=== PATIENT | male | born 1940 | race Caucasian/White ===

== ENCOUNTER 2019-06-19 15:15 | Emergency (ER) | payer OTHER, MEDICARE, SELFPAY ==
[2019-06-19 15:16] VITALS: BP 184/74; PULSE 74; RESP 18; TEMP 36.5; O2SAT 97; BMI 30.7
[2019-06-19 15:20] VITALS: O2SAT 97
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
[2019-06-19] MEDS: Ketorolac 30 MG/ML Syringe IM (16:31)
[2019-06-19] MEDS: Acetaminophen 325 MG Tablet 650 MG PO (16:31)
[2019-06-19 17:07] VITALS: BP 185/66; PULSE 92; RESP 16; O2SAT 97
[2019-06-19] MEDS: Diphth,Pertuss(Acell),Tet Vac 0.5 ML Vial IM (18:04)
== END 2019-06-19 17:08 | disposition home or self-care (01) ==
LOC: ED 16:33
PROVIDERS: Emergency Provider Emergency Medicine; PCP Family Medicine
DX: S61.412A Laceration without foreign body of left hand, initial encounter (principal); S20.211A Contusion of right front wall of thorax, initial encounter; V89.2XXA Person injured in unspecified motor-vehicle accident, traffic, initial encounter; Y93.9 Activity, unspecified; Y92.9 Unspecified place or not applicable
CPT/HCPCS: 71250; 90715; 96372; 99284

== ENCOUNTER → 2024-07-13 | Outpatient (CLI) | payer MEDICARE, OTHER, SELFPAY ==
[2024-07-13 12:24] LABS: Absolute Lymphocyte Count 1.26 X10^3/uL (0.83-4.51); Absolute Neutrophil Count 5.4 X10^3/uL (2.0-7.7); Basophil# 0.06 X10^3/uL; Basophil% 0.8 % (0-1); Eosinophil# 0.33 X10^3/uL; Eosinophils% 4.3 % (0-5); Hematocrit 39.6 % (40-54); Hemoglobin 12.6 g/dL (13.0-16.5); Lymphocyte # 1.26 X10^3/ul (0.83-4.51); Lymphocyte % 16.4 % (19-41); Mean Corp Hgb Conc 31.8 g/dL (32-36); Mean Corpuscular Hgb 28.1 pg (27.0-32.0); Mean Corpuscular Volume 88.4 fL (80-94); Mean Platelet Vol. 9.9 fl (6.2-12.0); Monocyte# 0.65 X10^3/uL; Monocyte% 8.5 % (0-10); NRBC Flagged by Analyzer 0 % (0-5); Neutrophil # 5.35 X10^3/uL (2.7-7.7); Neutrophil % 69.6 % (47-70); Platelet Count 320 K/mm3 (150-450); RBC Distribution Width CV 14.8 % (11.6-14.6); RBC Distribution Width SD 47.8 fl (35.1-43.9); Red Blood Count 4.48 M/mm3 (4.6-6.2); White Blood Count 7.7 K/mm3 (4.4-11.0)
[2024-07-13 14:53] LABS: ALB/GLOB Ratio 1.3 RATIO (0.9-2.4); AST(SGOT) 18 U/L (<=37); Alanine Aminotransfer ALT/SGPT 16 U/L (<=46); Albumin, Serum 3.9 g/dL (3.4-4.8); Alkaline Phosphatase 112 U/L (40-129); Anion Gap 10 (5-15); BUN 20 mg/dL (4-19); BUN/Creat Ratio 11.7 RATIO (10-20); Calcium,Total 9.7 mg/dL (7.6-11.0); Carbon Dioxide 23.1 mmol/L (21.0-32.0); Chloride 105 mmol/L (98-108); Cholesterol 191 mg/dL (<=200); Creatinine, Serum 1.74 mg/dL (0.70-1.20); EST Glomerular Filtration Rate 38 (>60); Glucose 106 mg/dL (70-99); High Density Lipoprotein 50 mg/dL; Low Density Lipoprotein Calc. 121 mg/dL; Potassium 4.9 mmol/L (3.3-5.1); Protein, Total 6.9 g/dL (5.9-8.4); Sodium Level 137 mmol/L (133-145); Total Bilirubin 0.43 mg/dL (0.00-1.30); Triglycerides 100 mg/dL; Very Low Density Lipoprotein 20 mg/dL (5-40); cholesterol:hdl ratio screen 3.84
[2024-07-13 15:01] LABS: Vitamin D,25 Hydroxy 53.5 ng/mL (30-100)
== END | disposition home or self-care (01) ==
LOC: BIMLAB 08:12
PROVIDERS: PCP Internal Medicine; Referring Provider Internal Medicine; Visit Provider Internal Medicine
DX: E55.9 Vitamin D deficiency, unspecified (principal); I10 Essential (primary) hypertension
CPT/HCPCS: 36415; 80053; 80061; 82306; 84443; 85025

== ENCOUNTER → 2024-08-11 | Outpatient (CLI) | payer MEDICARE, OTHER, SELFPAY ==
[2024-08-11 13:27] LABS: Anion Gap 12 (5-15); BUN 20 mg/dL (4-19); Calcium,Total 9.4 mg/dL (7.6-11.0); Carbon Dioxide 20.5 mmol/L (21.0-32.0); Chloride 106 mmol/L (98-108); EST Glomerular Filtration Rate 36 (>60); Glucose 120 mg/dL (70-99); Potassium 5.1 mmol/L (3.3-5.1); Sodium Level 139 mmol/L (133-145)
[2024-08-11 13:32] LABS: Hematocrit 39.3 % (40-54); Hemoglobin 12.9 g/dL (13.0-16.5); Mean Corp Hgb Conc 32.8 g/dL (32-36); Mean Corpuscular Hgb 28.7 pg (27.0-32.0); Mean Corpuscular Volume 87.3 fL (80-94); Mean Platelet Vol. 10.2 fl (6.2-12.0); Platelet Count 266 K/mm3 (150-450); RBC Distribution Width CV 14.3 % (11.6-14.6); White Blood Count 8.2 K/mm3 (4.4-11.0)
== END | disposition home or self-care (01) ==
LOC: BIMLAB 10:31
PROVIDERS: PCP Internal Medicine; Referring Provider Internal Medicine; Visit Provider Internal Medicine
DX: I12.9 Hypertensive chronic kidney disease with stage 1 through stage 4 chronic kidney disease, or unspecified chronic kidney disease (principal); N18.9 Chronic kidney disease, unspecified
CPT/HCPCS: 36415; 80048; 84443; 85027

== ENCOUNTER → 2024-11-10 | Outpatient (CLI) | payer MEDICARE, OTHER, SELFPAY ==
[2024-11-10 13:12] LABS: Anion Gap 13 (5-15); BUN 21 mg/dL (4-19); BUN/Creat Ratio 11.5 RATIO (10-20); Calcium,Total 9.6 mg/dL (7.6-11.0); Carbon Dioxide 21.3 mmol/L (21.0-32.0); Chloride 103 mmol/L (98-108); Glucose 103 mg/dL (70-99); Potassium 4.9 mmol/L (3.3-5.1)
== END | disposition home or self-care (01) ==
LOC: LAB 11:13
PROVIDERS: PCP Internal Medicine; Referring Provider Internal Medicine; Visit Provider Internal Medicine
DX: I10 Essential (primary) hypertension (principal)
CPT/HCPCS: 36415; 80048

== ENCOUNTER → 2024-11-14 | Outpatient (CLI) | payer MEDICARE, OTHER, SELFPAY ==
--- OUTSIDE RECORDS SUMMARY | 2024-11-14 13:10 | XMS RPT_ITS | CCD ---
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 appearance normal, both eyes and all related structures Neck Neck: normal visual inspection, no lymphadenopathy and no meningeal signs Chest Chest palpation inspection: normal inspection of the chest Resp Effort Inspection: normal respiratory effort and able to speak in complete sentences Auscultation: Bilateral: Clear to Auscultation Cardio Palpation: normal PMI Rate: regular rate Rhythm: regular rhythm Heart Sounds: S1 normal and S2 normal Pulses: radial pulses present GI Inspection: normal to inspection Skin General: no rashes or lesions noted Other: Erythematous papular rash with lichenification's throughout back, BUE, RLE with excoriations appreciated to several sites. Additionally, right hand moderate swelling proximal right index finger at site of insect bite with trace tender to palpation same. Neuro General: patient alert and patient a (more content not included)... Normal [facility] Anion gap in Serum or Plasma Ordered By: Nhoemy Pennington on 08-11-2024 Anion gap [Moles/Vol] 12 mmol/L 08-18 [facility] BUN/creatinine ratioOrdered By: Nohemy Pennington on 08-11-2024 Urea nitrogen/Creatinine [Mass ratio] 11.0 mg/mg 01-23 [facility] Basic Metabolic Profile (BMP )on 08-11-2024 BUN/CRE 11.0 RATIO Normal 01-23 [facility] Comment on above: Performed By: #### L 500.2500, L100.0500, L501.9520 ####[facility] [address] [place], [address] Calcium [Mass/Vol] 9.4 mg/dL Normal 7.6-11.0 [facility] Comment on above: Performed By: #### L 500.2500, L100.0500, L501.9520 ####[facility] [address] [place], [address] Chloride [Moles/Vol] 106 mmol/L Normal 98-108 [facility] Comment on above: Performed By: #### L 500.2500, L100.0500, L501.9520 ####[facility] [address] [place], [address] CO2 [Moles/Vol] 20.5 mmol/L Low 21.0-32.0 [facility] Comment on above: Performed By: #### L 500.2500, L100.0500, L501.9520 ####[facility] [address] [place], [address] Creatinine [Mass/Vol] 1.80 mg/dL High 0.70-1.20 [facility] Comment on above: Performed By: #### L 500.2500, L100.0500, L501.9520 ####[facility] [address] [place], [address] GAP 12 Normal 5-15 [facility] Comment on above: Performed By: #### L 500.2500, L100.0500, L501.9520 ####[facility] [address] [place], [address] GFR/1.73 sq M.predicted among non-blacks MDRD (S/P/Bld) [Vol rate/Area] 36 mL/min/{1.73_m2} Low >60 [facility] Comment on above: Result Comment: mL/m in/1.73m2 CKD-EPI Creatinine Equation (2020) Performed By: #### L 500.2500, L100.0500, L501.9520 ####[facility] [address] [place], [address] Glucose [Mass/Vol] 120 mg/dL High 70-99 [facility] Comment on above: Performed By: #### L 500.2500, L100.0500, L501.9520 ####[facility] [address] [place], [address] Potassium [Moles/Vol] 5.1 mmol/L Normal 3.3-5.1 [facility] Comment on above: Performed By: #### L 500.2500, L100.0500, L501.9520 ####[facility] [address] [place], [address] Sodium [Moles/Vol] 139 mmol/L Normal 133-145 [facility] Comment on above: Performed By: #### L 500.2500, L100.0500, L501.9520 ####[facility] [address] [place], [address] Urea nitrogen [Mass/Vol] 20 mg/dL High 4-19 [facility] Comment on above: Performed By: #### L 500.2500, L100.0500, L501.9520 ####[facility] [address] [place], [address] CBC-Complete Blood Cnt No Di ffon 08-11-2024 Erythrocyte distribution width (RBC) [Ratio] 14.3 % Normal 11.6-14.6 [facility] Comment on above: Performed By: #### L 500.2500, L100.0500, L501.9520 ####[facility] [address] [place], [address] Hematocrit (Bld) [Volume fraction] 39.3 % Low 40-54 [facility] Comment on above: Performed By: #### L 500.2500, L100.0500, L501.9520 ####[facility] [address] [place], [address] Hemoglobin (Bld) [Mass/Vol] 12.9 g/dL Low 13.0-16.5 [facility] Comment on above: Performed By: #### L 500.2500, L100.0500, L501.9520 ####[facility] [address] [place], [address] MCH (RBC) [Entitic mass] 28.7 pg Normal 27.0-32.0 [facility] Comment on above: Performed By: #### L 500.2500, L100.0500, L501.9520 ####[facility] [address] [place], [address] MCHC (RBC) [Mass/Vol] 32.8 g/dL Normal 32-36 [facility] Comment on above: Performed By: #### L 500.2500, L100.0500, L501.9520 ####[facility] [address] [place], [address] MCV (RBC) [Entitic vol] 87.3 fL Normal 80-94 [facility] Comment on above: Performed By: #### L 500.2500, L100.0500, L501.9520 ####[facility] [address] [place], [address] Platelet mean volume (Bld) [Entitic vol] 10.2 fL Normal 6.2-12.0 [facility] Comment on above: Performed By: #### L 500.2500, L100.0500, L501.9520 ####[facility] [address] [place], [address] Platelets (Bld) [#/Vol] 266 10*3/uL Normal 150-450 [facility] Comment on above: Performed By: #### L 500.2500, L100.0500, L501.9520 ####[facility] [address] [place], [address] RBC (Bld) [#/Vol] 4.50 10*6/uL Low 4.6-6.2 [facility] Comment on above: Performed By: #### L 500.2500, L100.0500, L501.9520 ####[facility] [address] [place], [address] RDW SD 46.0 fl High 35.1-43.9 [facility] Comment on above: Performed By: #### L 500.2500, L100.0500, L501.9520 ####[facility] [address] [place], [address] WBC (Bld) [#/Vol] 8.2 10*3/uL Normal 4.4-11.0 [facility] Comment on above: Performed By: #### L 500.2500, L100.0500, L501.9520 ####[facility] [address] [place], [address] Carbon dioxide, total [Moles /volume] in Central venous bloodOrdered By: Nohemy Pennington on 08-11-2024 CO2 [Moles/Vol] 20.5 mmol/L Low 21.0-32.0 [facility] Chloride assayOrdered By: Simone Pennington on 08-11-2024 Chloride [Moles/Vol] 106 mmol/L 98-108 [facility] Erythrocyte distribution wid th ratioOrdered By: Nohemy Pennington on 08-11-2024 Erythrocyte distribution width (RBC) [Ratio] 14.3 % 11.6-14.6 [facility] Erythrocyte distribution wid th standard deviationOrdered By: Nohemy Pennington on 08-11-2024 Erythrocyte distribution width (RBC) [Ratio] 46.0 fl High 35.1-43.9 [facility] Glomerular filtration rate ( GFR) estimation/1.73 sq m using serum, plasma, or whole bOrdered By: Nohemy Pennington on 08-11-2024 GFR/1.73 sq M.predicted among non-blacks MDRD (S/P/Bld) [Vol rate/Area] 36 mL/min/{1.73_m2} Low >60 [facility] Comment on above: mL/min/1.73m2 CKD-EP I Creatinine Equation (2020) Hematocrit Auto (Bld) [Volum e fraction]Ordered By: Nohemy Pennington on 08-11-2024 Hematocrit (Bld) [Volume fraction] 39.3 % Low 40-54 [facility] Hemoglobin measurementOrdere d By: Nohemy Pennington on 08-11-2024 Hemoglobin (Bld) [Mass/Vol] 12.9 g/dL Low 13.0-16.5 [facility] MCV (mean corpuscular volume ) determinationOrdered By: Nohemy Pennington on 08-11-2024 MCV (RBC) [Entitic vol] 87.3 fL 80-94 [facility] Mean corpuscular hemoglobin (MCH) determinationOrdered By: Nohemy Pennington on 08-11-2024 MCH (RBC) [Entitic mass] 28.7 pg 27.0-32.0 [facility] Mean corpuscular hemoglobin concentration (MCHC) determinationOrdered By: Nohemy Pennington on 08-11-2024 MCHC (RBC) [Mass/Vol] 32.8 g/dL 32-36 [facility] Mean platelet volume determi nationOrdered By: Nohemy Pennington on 08-11-2024 Platelet mean volume (Bld) [Entitic vol] 10.2 fL 6.2-12.0 [facility] Platelet countOrdered By: Simone Pennington on 08-11-2024 Platelets (Bld) [#/Vol] 266 10*3/uL 150-450 [facility] Potassium measurement (mass/ volume)Ordered By: Nohemy Pennington on 08-11-2024 Potassium (Unsp spec) [Mass/Vol] 5.1 mmol/L 3.3-5.1 [facility] RBC Auto (Bld) [#/Vol]Ordere d By: Nohemy Pennington on 08-11-2024 RBC (Bld) [#/Vol] 4.50 10*6/uL Low 4.6-6.2 [facility] Serum creatinine measurement (mass/volume)Ordered By: Nohemy Pennington on 08-11-2024 Creatinine [Mass/Vol] 1.80 mg/dL High 0.70-1.20 [facility] Serum glucose measurement (m ass/volume)Ordered By: Nohemy Pennington on 08-11-2024 Glucose [Mass/Vol] 120 mg/dL High 70-99 [facility] Serum or plasma calcium anant urement (mass/volume)Ordered By: Nohemy Pennington on 08-11-2024 Calcium [Mass/Vol] 9.4 mg/dL 7.6-11.0 [facility] Serum or plasma urea nitroge n measurement (mass/volume)Ordered By: Nohemy Pennington on 08-11-2024 Urea nitrogen [Mass/Vol] 20 mg/dL High 4-19 [facility] Sodium levelOrdered By: Stephanie Pennington on 08-11-2024 Sodium [Moles/Vol] 139 mmol/L 133-145 [facility] TSH DL <= 0.005 mIU/L QnOrde red By: Nohemy Pennington on 08-11-2024 TSH Qn 5.360 uIU/mL High 0.300-4.200 [facility] Thyroid Stim Hormone (TSH)on 08-11-2024 TSH 5.360 uIU/mL High 0.300-4.200 [facility] Comment on above: Performed By: #### L 500.2500, L100.0500, L501.9520 ####[facility] [address] [place], [address] White blood cell (WBC) count Ordered By: Nohemy Pennington on 08-11-2024 WBC (Bld) [#/Vol] 8.2 10*3/uL 4.4-11.0 [facility] Internal Medicine Office Vis iton 08-10-2024 Internal Medicine Office Visit [facility] [address] [place] [address] [address] [place], [place] [id number] OFFICE VISIT Date of Service: 08/11/24 MR#: [id number] Acct: [id number] Name: AGATHA HEATH Rep #: [id number] : 1940 Provider: Dr. Nohemy garcia MD Age/Sex: 84/M Location: [facility] Status: Signed Intake Vital Signs 07/12/24 14:33 08/11/24 10:02 08/11/24 10:02 08/11/24 11:22 Height 5 ft 7 in 5 ft 7 in Weight: 179 lb BMI 28.0 BP 150/82 H 150/82 H 178/80 H Blood Pressure Location Lt brachial Lt brachial Position Sitting Sitting Respiration 16 Pulse 58 L Pulse Source Monitor Temp 97.1 F L Temp Source Temporal Pulse Oximetry (%) 99 Oxygen Delivery Method room air Intake Visit Reasons: 4 WK FU Chief Complaint: bp Blanket Folder Required: No Is patient in pain?: No Allergies ampicillin Allergy (Verified 08/11/24 09:55) Rash bacitracin (From Polysporin) Allergy (Verified 08/11/24 09:55) Rash polymyxin B sulfate (From Polysporin) Allergy (Verified 08/11/24 09:55) Rash clindamycin Adverse Reaction (Verified 08/11/24 09:55) Diarrhea hydrochlorothiazide Adverse Reaction (Verified 08/11/24 09:55) Vomiting Have you fallen in the past year?: No Nurse's Note: Pt has been doing okay since starting norvasc. Pt states he has no side effects and does not check bp's at home or keeps logs. Pt states he got a new bp machine but has not used it yet. When reconciling meds. Pt states he takes losartan qd rather bid as written. Is taking 100mg. [facility] Medical History Skin cancer Surgical History H/O removal of cyst S/P skin cancer resection Family History Father COPD (chronic obstructive pulmonary disease) Social History household members: none current occupational status: retired current occupation: [employer] Smoking Status: Former smoker alcohol intake: never substance use type: does not use do you feel safe at home: Yes HPI HPI Chief Complaint: bp Details: AGATHA HEATH, is a 84 M who presents to the office today for a follow up. He is due for some repeat blood work. He isn't due for any further screening. He reports he is up to date on his immunizations. He doesn't smoke and doesn't need any refills. He reports he is eating healthy. He likes to ride his bike and walks every morning. He has not been checking his blood pressure at home since he was last seen. At his last visit, amlodipine was added to his medications. He is taking his medication as prescribed without problems. He doesn't eat a lot of salty foods and drinks only one cup of coffee per day. The patient never scheduled his echo. He states he would prefer not to do it at this time. He denies any symptoms of shortness of breath, dizziness/lightheadedn ess. The patient reports he continues to grieve his , but states he thinks he is doing better. He reports feeling lonely and doesn't feel people come by as much. He doesn't feel that he needs to see a counselor or take anything for his mental health. He does feel that his family is supportive. He has no other questions or concerns at this time. ROS Const Constitutional: No body ache, chills, excessive sweating, fatigue, fever(s), frequent falls, headache(s), snoring, weakness, weight change, sleep problems or change in appetite Eyes Eyes: No blurry vision, change in vision, eye pain or Light sensitivity ENT ENT: No abnormal hearing, ear or mastoid pain, tinnitus, nasal congestion, headache(s), neck pain or sore throat Resp Respiratory: No cough, shortness of breath, snoring or wheezing Cardio Cardiology: No chest pain at rest, chest pain with exertion, excessive sweating, shortness of breath, dyspnea on exertion, lightheadedness, orthopnea, palpitations or other (no leg swelling) Gastro GI: No abdominal pain, change in bowel habits, constipation, cramping, diarrhea, nausea/dyspepsia or vomiting Genitourinary Male: No difficulty urinating, burning urination, painful urination, urinary incontinence or urinary frequency Musc Musculoskeletal: No abnormal gait, joint pain, back pain, limited range of motion, neck pain, numbness or tingling Skin Skin: No dry skin, redness, lesions, itchy eyes, rash or wounds Neuro Neurology: No abnormal gait, abnormal hearing, dizziness, weakness, frequent falls, headache(s), memory loss, numbness, tingling or fainting Psych Psychiatric: No anxiety, No change in appetite, No depression, No memory loss and No Thoughts of harming yourself/Others Endo Endocrine: No cold intolerance, excessive sweating, fatigue, flushing, heat intolerance, increased (more content not included)... Normal [facility] Absolute lymphocyte countOrd ered By: Nohemy Pennington on 07-13-2024 Lymphocytes Auto (Unsp spec) [#/Vol] 1.26 10*3/uL 0.83-4.51 [facility] Absolute neutrophil countOrd ered By: Nohemy Pennington on 07-13-2024 Neutrophils (Bld) [#/Vol] 5.4 10*3/uL 2.0-7.7 [facility] Anion gap in Serum or Plasma Ordered By: Nohemy Pennington on 07-13-2024 Anion gap [Moles/Vol] 10 mmol/L 5-15 [facility] Automated lymphocyte count a s percentage of total leukocytesOrdered By: Nohemy Pennington on 07-13-2024 Lymphocytes/100 WBC Auto (Unsp spec) 16.4 % Low 19-41 [facility] BUN/creatinine ratioOrdered By: Nohemy Pennington on 07-13-2024 Urea nitrogen/Creatinine [Mass ratio] 11.7 mg/mg 10-20 [facility] Basophil percentageOrdered B y: Nohemy Pennington on 07-13-2024 Basophils/100 WBC (Bld) 0.8 % 0-1 [facility] Bilirubin, totalOrdered By: Nohemy Pennington on 07-13-2024 Bilirubin [Mass/Vol] 0.43 mg/dL 0.00-1.30 [facility] CBC W/Diff, Automatedon 04-0 9-2025 Absolute Lymph 1.26 X10 3/uL Normal 0.83-4.51 [facility] Comment on above: Performed By: #### L 500.4100, L100.0100, L500.4050, L506.1001, L501.9520 #### [facility] [address] [place], [address] Absolute Neut 5.4 X10 3/uL Normal 2.0-7.7 [facility] Comment on above: Performed By: #### L 500.4100, L100.0100, L500.4050, L506.1001, L501.9520 #### [facility] [address] [place], [address] Basophils/100 WBC (Bld) 0.8 % Normal 0-1 [facility] Comment on above: Performed By: #### L 500.4100, L100.0100, L500.4050, L506.1001, L501.9520 #### [facility] [address] [place], [address] Eosinophils/100 WBC (Bld) 4.3 % Normal 0-5 [facility] Comment on above: Performed By: #### L 500.4100, L100.0100, L500.4050, L506.1001, L501.9520 #### [facility] [address] [place], [address] Erythrocyte distribution width (RBC) [Ratio] 14.8 % High 11.6-14.6 [facility] Comment on above: Performed By: #### L 500.4100, L100.0100, L500.4050, L506.1001, L501.9520 #### [facility] [address] [place], [address] Hematocrit (Bld) [Volume fraction] 39.6 % Low 40-54 [facility] Comment on above: Performed By: #### L 500.4100, L100.0100, L500.4050, L506.1001, L501.9520 #### [facility] [address] [place], [address] Hemoglobin (Bld) [Mass/Vol] 12.6 g/dL Low 13.0-16.5 [facility] Comment on above: Performed By: #### L 500.4100, L100.0100, L500.4050, L506.1001, L501.9520 #### [facility] [address] [place], [address] IG% 0.400 Normal 0.0-0.9 [facility] Comment on above: Result Comment: IG% - Immature Granulocytes (promyelocytes, myelocytes and metamyelocytes) > 1% indicates that a LEFT SHIFT is Present. Performed By: #### L 500.4100, L100.0100, L500.4050, L506.1001, L501.9520 #### [facility] [address] [place], [address] Lymphocytes/100 WBC (Bld) 16.4 % Low 19-41 [facility] Comment on above: Performed By: #### L 500.4100, L100.0100, L500.4050, L506.1001, L501.9520 #### [facility] [address] [place], [address] MCH (RBC) [Entitic mass] 28.1 pg Normal 27.0-32.0 [facility] Comment on above: Performed By: #### L 500.4100, L100.0100, L500.4050, L506.1001, L501.9520 #### [facility] [address] [place], [address] MCHC (RBC) [Mass/Vol] 31.8 g/dL Low 32-36 [facility] Comment on above: Performed By: #### L 500.4100, L100.0100, L500.4050, L506.1001, L501.9520 #### [facility] [address] [place], [address] MCV (RBC) [Entitic vol] 88.4 fL Normal 80-94 [facility] Comment on above: Performed By: #### L 500.4100, L100.0100, L500.4050, L506.1001, L501.9520 #### [facility] [address] [place], [address] Monocytes/100 WBC (Bld) 8.5 % Normal 0-10 [facility] Comment on above: Performed By: #### L 500.4100, L100.0100, L500.4050, L506.1001, L501.9520 #### [facility] [address] [place], [address] Neutrophils/100 WBC (Bld) 69.6 % Normal 47-70 [facility] Comment on above: Performed By: #### L 500.4100, L100.0100, L500.4050, L506.1001, L501.9520 #### [facility] [address] [place], [address] Nucleated RBC (Bld) [#/Vol] 0 10*3/uL Normal 0-5 [facility] Comment on above: Performed By: #### L 500.4100, L100.0100, L500.4050, L506.1001, L501.9520 #### [facility] [address] [place], [address] Platelet mean volume (Bld) [Entitic vol] 9.9 fL Normal 6.2-12.0 [facility] Comment on above: Performed By: #### L 500.4100, L100.0100, L500.4050, L506.1001, L501.9520 #### [facility] [address] [place], [address] Platelets (Bld) [#/Vol] 320 10*3/uL Normal 150-450 [facility] Comment on above: Performed By: #### L 500.4100, L100.0100, L500.4050, L506.1001, L501.9520 #### [facility] [address] [place], [address] RBC (Bld) [#/Vol] 4.48 10*6/uL Low 4.6-6.2 [facility] Comment on above: Performed By: #### L 500.4100, L100.0100, L500.4050, L506.1001, L501.9520 #### [facility] [address] [place], [address] RDW SD 47.8 fl High 35.1-43.9 [facility] Comment on above: Performed By: #### L 500.4100, L100.0100, L500.4050, L506.1001, L501.9520 #### [facility] [address] [place], [address] WBC (Bld) [#/Vol] 7.7 10*3/uL Normal 4.4-11.0 [facility] Comment on above: Performed By: #### L 500.4100, L100.0100, L500.4050, L506.1001, L501.9520 #### [facility] [address] [place], [address] Calculated very low density lipoprotein (VLDL) cholesterol measurementOrdered By: Nohemy Pennington on 07-13-2024 Calculated very low density lipoprotein (VLDL) cholesterol measurement 20 mg/dL 5-40 [facility] VLDL Cholesterol 20 mg/dL 5-40 [facility] Carbon dioxide, total [Moles /volume] in Central venous bloodOrdered By: Nohemy Pennington on 07-13-2024 CO2 [Moles/Vol] 23.1 mmol/L 21.0-32.0 [facility] Chloride assayOrdered By: Simone Pennington on 07-13-2024 Chloride [Moles/Vol] 105 mmol/L 98-108 [facility] Comprehensive Metabolic Prof ilon 07-13-2024 Albumin [Mass/Vol] 3.9 g/dL Normal 3.4-4.8 [facility] Comment on above: Performed By: #### L 500.4100, L100.0100, L500.4050, L506.1001, L501.9520 #### [facility] [address] [place], [address] Albumin/Globulin [Mass ratio] 1.3 {ratio} Normal 0.9-2.4 [facility] Comment on above: Performed By: #### L 500.4100, L100.0100, L500.4050, L506.1001, L501.9520 #### [facility] [address] [place], [address] ALK PHOS 112 U/L Normal 40-129 [facility] Comment on above: Performed By: #### L 500.4100, L100.0100, L500.4050, L506.1001, L501.9520 #### [facility] [address] [place], [address] ALT [Catalytic activity/Vol] 16 U/L Normal <=46 [facility] Comment on above: Performed By: #### L 500.4100, L100.0100, L500.4050, L506.1001, L501.9520 #### [facility] [address] [place], [address] AST [Catalytic activity/Vol] 18 U/L Normal <=37 [facility] Comment on above: Performed By: #### L 500.4100, L100.0100, L500.4050, L506.1001, L501.9520 #### [facility] [address] [place], [address] Bilirubin [Mass/Vol] 0.43 mg/dL Normal 0.00-1.30 [facility] Comment on above: Performed By: #### L 500.4100, L100.0100, L500.4050, L506.1001, L501.9520 #### [facility] [address] [place], [address] BUN/CRE 11.7 RATIO Normal 10-20 [facility] Comment on above: Performed By: #### L 500.4100, L100.0100, L500.4050, L506.1001, L501.9520 #### [facility] [address] [place], [address] Calcium [Mass/Vol] 9.7 mg/dL Normal 7.6-11.0 [facility] Comment on above: Performed By: #### L 500.4100, L100.0100, L500.4050, L506.1001, L501.9520 #### [facility] [address] [place], [address] Chloride [Moles/Vol] 105 mmol/L Normal 98-108 [facility] Comment on above: Performed By: #### L 500.4100, L100.0100, L500.4050, L506.1001, L501.9520 #### [facility] [address] [place], [address] CO2 [Moles/Vol] 23.1 mmol/L Normal 21.0-32.0 [facility] Comment on above: Performed By: #### L 500.4100, L100.0100, L500.4050, L506.1001, L501.9520 #### [facility] [address] [place], [address] Creatinine [Mass/Vol] 1.74 mg/dL High 0.70-1.20 [facility] Comment on above: Performed By: #### L 500.4100, L100.0100, L500.4050, L506.1001, L501.9520 #### [facility] [address] [place], [address] GAP 10 Normal 5-15 [facility] Comment on above: Performed By: #### L 500.4100, L100.0100, L500.4050, L506.1001, L501.9520 #### [facility] [address] [place], [address] GFR/1.73 sq M.predicted among non-blacks MDRD (S/P/Bld) [Vol rate/Area] 38 mL/min/{1.73_m2} Low >60 [facility] Comment on above: Result Comment: mL/m in/1.73m2 CKD-EPI Creatinine Equation (2020) Performed By: #### L 500.4100, L100.0100, L500.4050, L506.1001, L501.9520 #### [facility] [address] [place], [address] Globulin (S) [Mass/Vol] 3.0 g/dL Normal 2.2-4.2 [facility] Comment on above: Performed By: #### L 500.4100, L100.0100, L500.4050, L506.1001, L501.9520 #### [facility] [address] [place], [address] Glucose [Mass/Vol] 106 mg/dL High 70-99 [facility] Comment on above: Performed By: #### L 500.4100, L100.0100, L500.4050, L506.1001, L501.9520 #### [facility] [address] [place], [address] Potassium [Moles/Vol] 4.9 mmol/L Normal 3.3-5.1 [facility] Comment on above: Performed By: #### L 500.4100, L100.0100, L500.4050, L506.1001, L501.9520 #### [facility] [address] [place], [address] Sodium [Moles/Vol] 137 mmol/L Normal 133-145 [facility] Comment on above: Performed By: #### L 500.4100, L100.0100, L500.4050, L506.1001, L501.9520 #### [facility] [address] [place], [address] T PROT 6.9 g/dL Normal 5.9-8.4 [facility] Comment on above: Performed By: #### L 500.4100, L100.0100, L500.4050, L506.1001, L501.9520 #### [facility] [address] [place], [address] Urea nitrogen [Mass/Vol] 20 mg/dL High 4-19 [facility] Comment on above: Performed By: #### L 500.4100, L100.0100, L500.4050, L506.1001, L501.9520 #### [facility] [address] [place], [address] Eosinophil percentageOrdered By: Nohemy Pennington on 07-13-2024 Eosinophils/100 WBC (Bld) 4.3 % 0-5 [facility] Erythrocyte distribution wid th (RBC) [Ratio]Ordered By: Nohemy Pennington on 07-13-2024 Erythrocyte distribution width (RBC) [Entitic vol] 47.8 fL High 35.1-43.9 [facility] Erythrocyte distribution wid th ratioOrdered By: Nohemy Pennington on 07-13-2024 Erythrocyte distribution width (RBC) [Ratio] 14.8 % High 11.6-14.6 [facility] Erythrocyte distribution wid th standard deviationOrdered By: Nohemy Pennington on 07-13-2024 Erythrocyte distribution width (RBC) [Ratio] 47.8 fl High 35.1-43.9 [facility] GFR/1.73 sq M.predicted jade g non-blacks MDRD (S/P/Bld) [Vol rate/Area]Ordered By: Nohemy Pennington on 07-13-2024 Estimated GFR (MDRD) Non-Af Amer 38 Low >60 [facility] Comment on above: mL/min/1.73m2 CKD-EP I Creatinine Equation (2020) Glomerular filtration rate ( GFR) estimation/1.73 sq m using serum, plasma, or whole bOrdered By: Nohemy Pennington on 07-13-2024 GFR/1.73 sq M.predicted among non-blacks MDRD (S/P/Bld) [Vol rate/Area] 38 mL/min/{1.73_m2} Low >60 [facility] Comment on above: mL/min/1.73m2 CKD-EP I Creatinine Equation (2020) Hematocrit Auto (Bld) [Volum e fraction]Ordered By: Nohemy Pennington on 07-13-2024 Hematocrit (Bld) [Volume fraction] 39.6 % Low 40-54 [facility] Hemoglobin measurementOrdere d By: Nohemy Penningotn on 07-13-2024 Hemoglobin (Bld) [Mass/Vol] 12.6 g/dL Low 13.0-16.5 [facility] Immature granulocytes/100 WB C Auto (Bld)Ordered By: Nohemy Pennington on 07-13-2024 Immature granulocytes/100 WBC (Bld) 0.400 % 0.0-0.9 [facility] Comment on above: IG% - Immature Granu locytes (promyelocytes, myelocytes and metamyelocytes) > 1% indicates that a LEFT SHIFT is Present. LDL calc ser/plasOrdered By: Nohemy Pennington on 07-13-2024 Cholesterol in LDL [Mass/Vol] 121 mg/dL [facility] Comment on above: Tuodaodziq=921-705 m g/dL & Higher Yvtx=873 mg/dL or greater LDL Cholesterol, Calculated 121 mg/dL [facility] Comment on above: Nlkwftigpn=431-288 m g/dL & Higher Kqgr=262 mg/dL or greater Laboratory - Chemistry and C hemistry - challengeOrdered By: Nohemy Pennington on 07-13-2024 AST [Catalytic activity/Vol] 18 U/L <38 [facility] Lipid Profileon 07-13-2024 CHOL:HDL 3.84 Normal [facility] Comment on above: Performed By: #### L 500.4100, L100.0100, L500.4050, L506.1001, L501.9520 #### [facility] [address] [place], [address] Cholesterol [Mass/Vol] 191 mg/dL Normal <=200 [facility] Comment on above: Result Comment: Chol esterol level, Desirable <200 mg/dL Borderline high cholesterol 200-239 mg/dL High cholesterol >=240 mg/dL Recommendations of the NCEP Adult Treatment Panel for the following risk-cutoff thresholds for the [place] population. Performed By: #### L 500.4100, L100.0100, L500.4050, L506.1001, L501.9520 #### [facility] [address] [place], [address] Cholesterol in HDL [Mass/Vol] 50 mg/dL Normal [facility] Comment on above: Result Comment: Lissette onal Cholesterol Education Program (NCEP) guidelines: <40 mg/dL: Low HDL-cholesterol (major risk factor for CHD) >= 60 mg/dL: High HDL-cholesterol (negative risk factor for CHD) HDL-cholesterol is affected by a number of factors, e.g. smoking, exercise, hormones, sex and age. Performed By: #### L 500.4100, L100.0100, L500.4050, L506.1001, L501.9520 #### [facility] [address] [place], [address] Cholesterol in LDL [Mass/Vol] 121 mg/dL Normal [facility] Comment on above: Result Comment: Bord bqjcvq=961-811 mg/dL Higher Sjqh=206 mg/dL or greater Performed By: #### L 500.4100, L100.0100, L500.4050, L506.1001, L501.9520 #### [facility] [address] [place], [address] Cholesterol in VLDL [Mass/Vol] 20 mg/dL Normal 5-40 [facility] Comment on above: Performed By: #### L 500.4100, L100.0100, L500.4050, L506.1001, L501.9520 #### [facility] [address] [place], [address] Triglyceride [Mass/Vol] 100 mg/dL Normal [facility] Comment on above: Result Comment: The drugs N-Acetylcysteine and Metamizole may falsely depress this assay. Normal range: <150 mg/dL Borderline High: 150-199 mg/dL High: 200-499 mg/dL Very High: >500 mg/dL Performed By: #### L 500.4100, L100.0100, L500.4050, L506.1001, L501.9520 #### [facility] [address] [place], [address] Lymphocytes Auto (Unsp spec) [#/Vol]Ordered By: Nohemy Pennington on 07-13-2024 Lymphocytes (Bld) [#/Vol] 1.26 10*3/uL 0.83-4.51 [facility] Lymphocytes/100 WBC Auto (Un sp spec)Ordered By: Nohemy Pennington on 07-13-2024 Lymphocytes/100 WBC (Bld) 16.4 % Low 19-41 [facility] MCV (mean corpuscular volume ) determinationOrdered By: Nohemy Pennington on 07-13-2024 MCV (RBC) [Entitic vol] 88.4 fL 80-94 [facility] Mean corpuscular hemoglobin (MCH) determinationOrdered By: Nohemy Pennington on 07-13-2024 MCH (RBC) [Entitic mass] 28.1 pg 27.0-32.0 [facility] Mean corpuscular hemoglobin concentration (MCHC) determinationOrdered By: Nohemy Pennington on 07-13-2024 MCHC (RBC) [Mass/Vol] 31.8 g/dL Low 32-36 [facility] Mean platelet volume determi nationOrdered By: Nohemy Pennington on 07-13-2024 Platelet mean volume (Bld) [Entitic vol] 9.9 fL 6.2-12.0 [facility] Monocyte percentageOrdered B y: Nohemy Pennington on 07-13-2024 Monocytes/100 WBC (Bld) 8.5 % 0-10 [facility] Neutrophil percentageOrdered By: Nohemy Pennington on 07-13-2024 Neutrophils/100 WBC (Bld) 69.6 % 47-70 [facility] Nucleated red blood cell per centageOrdered By: Nohemy Pennington on 07-13-2024 Nucleated RBC/100 WBC (Bld) [Ratio] 0 % 0-5 [facility] Office Visit Reporton 2024 Office Visit Report [facility] [address] [place] [address] OFFICE VISIT Date of Service: 07/13/24 MR#: [id number] Acct: [id number] Patient: AGATHA HEATH Rep #: [id number] : 1940 Provider: JAMAL NURSE Age/Sex: 84/M Location: [facility] [place] Status: Signed Intake Vital Signs 07/12/24 14:33 07/13/24 08:09 Height 5 ft 7 in Weight: 181 lb BMI 28.3 BP 154/86 H 178/82 H Blood Pressure Location Lt brachial Rt brachial Position Sitting Sitting Respiration 16 Pulse 64 Pulse Source Monitor Temp 95.2 F L Temp Source Temporal Pulse Oximetry (%) 96 Oxygen Delivery Method room air Intake Visit Reasons: BP CHECK Chief Complaint: bp Blanket Folder Required: No Is patient in pain?: No Allergies ampicillin Allergy (Verified 07/13/24 08:09) Rash bacitracin (From Polysporin) Allergy (Verified 07/13/24 08:09) Rash polymyxin B sulfate (From Polysporin) Allergy (Verified 07/13/24 08:09) Rash clindamycin Adverse Reaction (Verified 07/13/24 08:09) Diarrhea hydrochlorothiazide Adverse Reaction (Verified 07/13/24 08:09) Vomiting Medications ???Medication ???Instructions ???Recorded ???Confirmed ???Type losartan 100 mg tablet 100 mg PO BID 07/12/24 07/13/24 Hi story amlodipine 5 mg tablet 5 mg PO QDAY #30 tabs 07/13/2412/29 Rx Have you fallen in the past year?: No Nurse's Note: patient arrived with daughter for bp check first reading was 178/82 patient used his machine and was getting way higher numbers here as well as at home. patient chose to throw machine away and will replace with a new one at this time daughter would like to know where to go from here as far as the losartan Assessment and Plan Assessment and Plan (1) Essential hypertension: Status: Acute Medications: New amlodipine 5 mg PO QDAY 30 tabs 1RF Clinical Quality Measures Falls Risk Screening/Assistive Devices Have you fallen in the past year?: No 07/13/24 1311 Date Nohemy Roberto Signature: Date (if applicable) CC: BIM NURSE Normal [facility] Platelet countOrdered By: Simone Pennington on 07-13-2024 Platelets (Bld) [#/Vol] 320 10*3/uL 150-450 [facility] Potassium (Unsp spec) [Mass/ Vol]Ordered By: Nohemy Pennington on 07-13-2024 Potassium [Moles/Vol] 4.9 mmol/L 3.3-5.1 [facility] Potassium measurement (mass/ volume)Ordered By: Nohemy Pennington on 07-13-2024 Potassium (Unsp spec) [Mass/Vol] 4.9 mmol/L 3.3-5.1 [facility] RBC Auto (Bld) [#/Vol]Ordere d By: Nohemy Pennington on 07-13-2024 RBC (Bld) [#/Vol] 4.48 10*6/uL Low 4.6-6.2 [facility] Screening total cholesterol/ high density lipoprotein (HDL) cholesterol ratioOrdered By: Nohemy Pennington on 07-13-2024 Cholesterol.total/Choles terol in HDL [Mass ratio] 3.84 {ratio} [facility] Serum creatinine measurement (mass/volume)Ordered By: Nohemy Pennington on 07-13-2024 Creatinine [Mass/Vol] 1.74 mg/dL High 0.70-1.20 [facility] Serum globulin measurementOr dered By: Nohemy Pennington on 07-13-2024 Globulin (S) [Mass/Vol] 3.0 g/dL 2.2-4.2 [facility] Serum glucose measurement (m ass/volume)Ordered By: Nohemy Pennington on 07-13-2024 Glucose [Mass/Vol] 106 mg/dL High 70-99 [facility] Serum or plasma alanine regalado otransferase (ALT) measurementOrdered By: Nohemy Pennington on 07-13-2024 ALT [Catalytic activity/Vol] 16 U/L <47 [facility] Serum or plasma albumin anant urement (mass/volume)Ordered By: Nohemy Pennington on 07-13-2024 Albumin [Mass/Vol] 3.9 g/dL 3.4-4.8 [facility] Serum or plasma albumin/glob ulin mass ratioOrdered By: Nohemy Pennington on 07-13-2024 Albumin/Globulin [Mass ratio] 1.3 {ratio} 0.9-2.4 [facility] Serum or plasma alkaline ambreen sphatase measurementOrdered By: Nohemy Pennington on 07-13-2024 ALP [Catalytic activity/Vol] 112 U/L 40-129 [facility] Serum or plasma calcium anant urement (mass/volume)Ordered By: Nohemy Pennington on 07-13-2024 Calcium [Mass/Vol] 9.7 mg/dL 7.6-11.0 [facility] Serum or plasma cholesterol in HDL measurement (mass/volume)Ordered By: Nohemy Pennington on 07-13-2024 Cholesterol in HDL [Mass/Vol] 50 mg/dL >40 [facility] Comment on above: National Cholesterol Education Program (NCEP) guidelines:<40 mg/dL: Low HDL-cholesterol (major risk factor for CHD)>= 60 mg/dL: High HDL-cholesterol (negative risk factor for CHD)HDL-cholesterol is affected by a number of factors, e.g. smoking, exercise, hormones, sex and age. Serum or plasma cholesterol measurement (mass/volume)Ordered By: Nohemy Pennington on 07-13-2024 Cholesterol [Mass/Vol] 191 mg/dL <201 [facility] Comment on above: Cholesterol level, D esirable <200 mg/dLBorderline high cholesterol 200-239 mg/dLHigh cholesterol >=240 mg/dLRecommendations of the NCEP Adult Treatment Panel for the following risk-cutoff thresholds for the [place] population. Serum or plasma urea nitroge n measurement (mass/volume)Ordered By: Nohemy Pennington on 07-13-2024 Urea nitrogen [Mass/Vol] 20 mg/dL High 4-19 [facility] Sodium levelOrdered By: Stephanie Pennington on 07-13-2024 Sodium [Moles/Vol] 137 mmol/L 133-145 [facility] TSH DL <= 0.005 mIU/L QnOrde red By: Nohemy Pennington on 07-13-2024 Thyroid Stimulating Hormone (TSH) 6.300 uIU/mL High 0.300-4.200 [facility] TSH Qn 6.300 uIU/mL High 0.300-4.200 [facility] Thyroid Stim Hormone (TSH)on 07-13-2024 TSH 6.300 uIU/mL High 0.300-4.200 [facility] Comment on above: Performed By: #### L 500.4100, L100.0100, L500.4050, L506.1001, L501.9520 #### [facility] [address] [place], [place], [id number] Total proteinOrdered By: Willie Pennington on 07-13-2024 Protein [Mass/Vol] 6.9 g/dL 5.9-8.4 [facility] Triglycerides measurementOrd ered By: Nohemy Pennington on 07-13-2024 Triglyceride [Mass/Vol] 100 mg/dL <199 [facility] Comment on above: The drugs N-Acetylcy steine and Metamizole may falsely depress this assay. Normal range: <150 mg/dLBorderline High: 150-199 mg/dLHigh: 200-499 mg/dLVery High: >500 mg/dL Vitamin D, 25-hydroxyOrdered By: Nohemy Pennington on 07-13-2024 Vitamin D 25-Hydroxy 53.5 ng/mL 30-100 [facility] Comment on above: Vitamin D StatusDefi ciency: <20 ng/mL (50nmol/L)Insufficiency: 20-30 ng/mL (50-75 nmol/L)Sufficiency: 30-100 ng/mL (75-250 nmol/L)Toxicity: >100 ng/mL (>250 nmol/L) Vitamin D,25 Hydroxyon 07-13 Vitamin D 25-OH 53.5 ng/mL Normal 30-100 [facility] Comment on above: Result Comment: Eufemia min D Status Deficiency: <20 ng/mL (50nmol/L) Insufficiency: 20-30 ng/mL (50-75 nmol/L) Sufficiency: 30-100 ng/mL (75-250 nmol/L) Toxicity: >100 ng/mL (>250 nmol/L) Performed By: #### L 500.4100, L100.0100, L500.4050, L506.1001, L501.9520 ####[facility] [id number] [place], [address] White blood cell (WBC) count Ordered By: Nohemy Pennington on 07-13-2024 WBC (Bld) [#/Vol] 7.7 10*3/uL 4.4-11.0 [facility] Internal Medicine Office Vis ronny 07-11-2024 Internal Medicine Office Visit [facility] [address] [place] [address] [place] [address] OFFICE VISIT Date of Service: 07/12/24 MR#: [id number] Acct: [id number] Name: AGATHA HEATH Rep #: [id number] : 1940 Provider: Dr. 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 Folder Required: No Accompanied by: Self Is patient in pain?: No Allergies ampicillin Allergy (Verified 07/12/24 14:27) Rash bacitracin (From Polysporin) Allergy (Verified 07/12/24 14:27) Rash polymyxin B sulfate (From Polysporin) Allergy (Verified 07/12/24 14:27) Rash clindamycin Adverse Reaction (Verified 07/12/24 14:27) Diarrhea hydrochlorothiazide Adverse Reaction (Verified 07/12/24 14:27) Vomiting Medications ???Medication ???Instructions ???Recorded ???Confirmed ???Type losartan 100 mg tablet 100 mg PO BID 07/12/24 07/12/24 Hi story Have you fallen in the past year?: No PFSH Medical History (Updated 07/12/24 @ 14:[address] Nohemy Pennington MD) Skin cancer Surgical History (Updated 07/12/24 @ 14:[address] Nohemy Pennington MD) H/O removal of cyst S/P skin cancer resection Family History (Updated 07/12/24 @ 14:[address] Nohemy Pennington MD) Father COPD (chronic obstructive pulmonary disease) Social History (Updated 07/12/24 @ 14:[address] Nohemy Pennington MD) household members: none current occupational status: retired current occupation: [employer] Smoking Status: Former smoker alcohol intake: never substance use type: does not use do you feel safe at home: Yes HPI HPI Details: AGATHA HEATH, is a 84 M who presents to the office today to establish care. He was seeing Dr. Kirby and last saw them a few years ago. He is due for some routine blood work. He isn't due for any further screening. He reports he is up to date on his immunizations. He doesn't smoke and doesn't need any refills. He reports he is eating healthy, but doesn't have much of an appetite. He likes to ride his bike and walks every morning. He has been on blood pressure medications for more than 60 years. He does check his blood pressure at home and has provided some home readings for review. He was previously on medications but stopped taking them about 5 years ago. He states his family made him start checking his blood pressure after his passed of a CVA/HTN and found that his readings have been high. He started taking losartan, which was his 's medication. He has been taking 100mg BID. He doesn't eat a lot of salty foods and drinks only one cup of coffee per day. He has no other questions or concerns at this time. ROS Const Constitutional: Positive for weakness and weight change (weight loss); No body ache, excessive sweating, fatigue, fever(s), frequent falls, headache(s), snoring, sleep problems or change in appetite Eyes Eyes: No blurry vision, change in vision, eye pain or Light sensitivity ENT ENT: Positive for abnormal hearing; No ear or mastoid pain, tinnitus, nasal congestion, headache(s), neck pain or sore throat Resp Respiratory: No cough, shortness of breath, snoring or wheezing Cardio Cardiology: No chest pain at rest, chest pain with exertion, excessive sweating, shortness of breath, dyspnea on exertion, lightheadedness, orthopnea, palpitations or other (no leg swelling) Gastro GI: No abdominal pain, change in bowel habits, constipation, cramping, diarrhea, nausea/dyspepsia or vomiting Genitourinary Male: No difficulty urinating, burning urination, painful urination, urinary incontinence, urinary frequency or blood in urine Musc Musculoskeletal: No abnormal gait, joint pain, back pain, limited range of motion, neck pain, numbness, stiffness, tingling or Arthritis Skin Skin: No dry skin, redness, lesions, itchy eyes, rash or wounds Neuro Neurology: Positive for abnormal hearing, dizziness and weakness; No abnormal gait, abnormal speech, frequent falls, headache(s), memory loss, numbness, tingling or fainting Psych Psychiatric: No anxiety, No change in appetite, Positive for depression (grieving loss of ), No memory loss and No Thoughts of harming yourself/Others Endo Endocrine: Positive for weight change (weight loss); No cold intolerance, excessive sweating, fatigue, flushing, heat intolerance, increased thirst/drinking or increased hunger Aller/Imm Allergy/Immunologic: No itchy eyes, seasonal allergy symptoms, hives or wheezing Salvador/Lymp Hematologic/ (more content not included)... Normal [facility] 05-04-2024 [facility] Telephone ([facility]) AGATHA HEATH ([id number]) 1940 M Date Time Provider Department 05/04/24 AYAZ FERRARO During your visit today, we recorded the following information about you: Tricia Perkins 05/04/2024 11:24 AM Addendum Daughter calling to request for patient to be accepted into the practice of Dr. Ferraro. Patient was previously under the care of Dr. Kirby (last seen in 2019). Patient's relative, Jade Stanley, is a current patient of Dr. Ferraro. Please contact patient first to receive authorization to speak with Daughter, Malorie Heath, then notify daughter of provider's decision. PSS confirmed phone number for patient in chart is accurate. Paula Castellano MA 05/04/2024 2:[address] Ferraro Only excepts new patient's - immediate close family members only. If he sees / Child/children Grandparents Who has patient been seeing since 2019? SHAHRAM Humphrey Jeffrey A, MD 05/04/2024 3:59 PM Signed Dianna find out from Jade Stanley: how she is related. She has him listed in her chart but just as a relative. Paula Castellano MA 05/04/2024 4:42 PM Signed Did reach out to Katherine via my chart. MARY ANNE Humphrey Roxanne, MA 05/06/2024 2:09 PM Signed Katherine reached out and patient has found another physician. He was counsin. Paula Castellano MA Allergies As of Date: 05/04/2024 Noted Allergy Reaction AMPICILLIN 03/18/2005 CLINDAMYCIN 09/29/2014 6 - Diarrhea Comments: C. difficile POLYSPORIN (BACITRACIN-POLYMYXIN *03/19/2005 Date Reviewed: 05/25/2018 Reviewed by: Kamilla Mars ([facility])MARY ANNE - Fully Assessed Reason for Visit: New Patient [172] Prescriptions as of 05/06/2024 - amLODIPine (NORVASC) 10 mg tablet Take 1 tablet by mouth once daily. - Quinapril HCl 40 mg tablet Take 1 tablet by mouth once daily. - Hydrochlorothiazide 12.5 mg capsule Take 1 capsule by mouth once daily. Problem List As Of Date 05/04/2024 Noted Resolved Closed dislocation of acromioclavicular (joint)*04/08/2005 07/31/2013 Essential hypertension, benign [I10] 07/31/2013 Hearing loss [H91.90] 07/31/2013 Tinnitus of left ear [H93.12] 07/31/2013 Degenerative arthritis of knee [M17.9] 08/09/2013 Hyperlipidemia with target LDL less than 130 [E*08/09/2013 Anxiety [F41.9] 09/13/2013 Elevated alkaline phosphatase level [R74.8] 05/05/2016 05/27/2017 CKD (chronic kidney disease) stage 3, GFR 30-59*05/05/2016 Encounter Status:Closed by PAULA CASTELLANO on 05/06/24 Normal [facility] Vital Signs Date Time Vital Sign Value Performing Clinician Avila durant 11-10-2024 10:49-0400 Diastolic blood pressure 86 mm[Hg] Dr. Nohemy Pennington MD Work Phone: [facility] 11-10-2024 10:49-0400 Systolic blood pressure 176 mm[Hg] Dr. Nohemy Pennington MD Work Phone: [facility] 11-10-2024 10:05-0400 Body height 170.[address] Nohemy Pennington MD Work Phone: [facility] 11-10-2024 10:05-0400 Body mass index (BMI) [Ratio] 28.1 kg/m2 Dr. Nohemy Pennington MD Work Phone: [facility] 11-10-2024 10:05-0400 Body temperature 96.9 [degF] Dr. Nohemy Pennington MD Work Phone: [facility] 11-10-2024 10:05-0400 Body weight 81.[address] Nohemy Pennington MD Work Phone: [facility] 11-10-2024 10:05-0400 Heart rate 66 /min Dr. Nohemy Pennington MD Work Phone: [facility] 11-10-2024 10:05-0400 Respiratory rate 16 /min Dr. Nohemy Pennington MD Work Phone: [facility] 11-10-2024 10:05-0400 SaO2% (BldA) [Mass fraction] 98 % Dr. Nohemy Pennington MD Work Phone: [facility] 10-05-2024 11:37-0400 Body height 170.[address] Nohemy Pennington MD Work Phone: [facility] 10-05-2024 11:37-0400 Body mass index (BMI) [Ratio] 29 kg/m2 Dr. Nohemy Pennington MD Work Phone: [facility] 10-05-2024 11:37-0400 Body temperature 98.6 [degF] Dr. Nohemy Pennington MD Work Phone: [facility] 10-05-2024 11:37-0400 Body weight 83.[address] Nohemy Pennington MD Work Phone: [facility] 10-05-2024 11:37-0400 Diastolic blood pressure 80 mm[Hg] Dr. Nohemy Pennington MD Work Phone: [facility] 10-05-2024 11:37-0400 Heart rate 70 /min Dr. Nohemy Pennington MD Work Phone: [facility] 10-05-2024 11:37-0400 Respiratory rate 16 /min Dr. Nohemy Pennington MD Work Phone: [facility] 10-05-2024 11:37-0400 SaO2% (BldA) [Mass fraction] 97 % Dr. Nohemy Pennington MD Work Phone: [facility] 10-05-2024 11:37-0400 Systolic blood pressure 170 mm[Hg] Dr. Nohemy Pennington MD Work Phone: [facility] 09-27-2024 08:47-0400 Body height 170.[address] Nohemy Pennington MD Work Phone: [facility] 09-27-2024 08:47-0400 Body mass index (BMI) [Ratio] 28.1 kg/m2 Dr. Nohemy Pennington MD Work Phone: [facility] 09-27-2024 08:47-0400 Body temperature 97.6 [degF] Dr. Nohemy Pennington MD Work Phone: [facility] 09-27-2024 08:47-0400 Body weight 81.[address] Nohemy Pennington MD Work Phone: [facility] 09-27-2024 08:47-0400 Diastolic blood pressure 60 mm[Hg] Dr. Nohemy Pennington MD Work Phone: [facility] 09-27-2024 08:47-0400 Heart rate 70 /min Dr. Nohemy Pennington MD Work Phone: [facility] 09-27-2024 08:47-0400 Respiratory rate 16 /min Dr. Nohemy Pennington MD Work Phone: [facility] 09-27-2024 08:47-0400 SaO2% (BldA) [Mass fraction] 99 % Dr. Nohemy Pennington MD Work Phone: [facility] 09-27-2024 08:47-0400 Systolic blood pressure 140 mm[Hg] Dr. Nohemy Pennington MD Work Phone: [facility] 08-11-2024 11:22-0400 Diastolic blood pressure 80 mm[Hg] Dr. Nohemy Pennington MD Work Phone: [facility] 08-11-2024 11:22-0400 Systolic blood pressure 178 mm[Hg] Dr. Nohemy Pennington MD Work Phone: [facility] 08-11-2024 10:02-0400 Body height 170.[address] Nohemy Pennington MD Work Phone: [facility] 08-11-2024 10:02-0400 Body mass index (BMI) [Ratio] 28 kg/m2 Dr. Nohemy Pennington MD Work Phone: [facility] 08-11-2024 10:02-0400 Body temperature 97.1 [degF] Dr. Nohemy Pennington MD Work Phone: [facility] 08-11-2024 10:02-0400 Body weight 81.[address] Nohemy Pennington MD Work Phone: [facility] 08-11-2024 10:02-0400 Heart rate 58 /min Dr. Nohemy Pennington MD Work Phone: [facility] 08-11-2024 10:02-0400 Respiratory rate 16 /min Dr. Nohemy Pennington MD Work Phone: [facility] 08-11-2024 10:02-0400 SaO2% (BldA) [Mass fraction] 99 % Dr. Nohemy ePnnington MD Work Phone: [facility] 07-13-2024 08:09-0400 Diastolic blood pressure 82 mm[Hg] Dr. Nohemy Pennington MD Work Phone: [facility] 07-13-2024 08:09-0400 Systolic blood pressure 178 mm[Hg] Dr. Nohemy Pennington MD Work Phone: [facility] 07-12-2024 16:51-0400 Diastolic blood pressure 86 mm[Hg] Dr. Nohemy Pennington MD Work Phone: [facility] 07-12-2024 16:51-0400 Systolic blood pressure 152 mm[Hg] Dr. Nohemy Pennington MD Work Phone: [facility] 07-12-2024 14:33-0400 Body height 170.[address] Nohemy Pennington MD Work Phone: [facility] 07-12-2024 14:33-0400 Body mass index (BMI) [Ratio] 28.3 kg/m2 Dr. Nohemy Pennington MD Work Phone: [facility] 07-12-2024 14:33-0400 Body temperature 95.2 [degF] Dr. Nohemy Pennington MD Work Phone: [facility] 07-12-2024 14:33-0400 Body weight 82.[address] Nohemy Pennington MD Work Phone: [facility] 07-12-2024 14:33-0400 Heart rate 64 /min Dr. Nohemy Pennington MD Work Phone: [facility] 07-12-2024 14:33-0400 Respiratory rate 16 /min Dr. Nohemy Pennington MD Work Phone: [facility] 07-12-2024 14:33-0400 SaO2% (BldA) [Mass fraction] 96 % Dr. Nohemy Pennington MD Work Phone: [facility] Encounters Encounter Date Encounter Type Care Provider Facility Start: 11-10-2024 ambulatory Nohemy Pennington Facility :[facility] Start: 11-10-2024 End: 11-10-[address] Nohemy Pennington MD -[facility] Work Phone: Start: 11-10-2024 End: 11-10-[address] Nohemy Pennington MD Work Phone: -[facility] Start: 10-26-2024 End: 10-26-2024 ambulatory [facility] Start: 10-05-2024 End: 10-05-[address] Nohemy Pennington MD -[facility] Work Phone: Start: 10-05-2024 End: 10-05-[address] Nohemy Pennington MD Work Phone: -[facility] Start: 09-27-2024 End: 09-27-2024 Patient encounter procedure Roberto Carlos Tobias [facility] Work Phone: Start: 09-27-2024 End: 09-27-[address] Nohemy Pennington MD Work Phone: [facility] Work Phone: Start: 08-11-2024 End: 08-11-[address] Nohemy Pennington MD -[facility] Work Phone: Start: 08-11-2024 End: 08-11-[address] Nohemy Pennington MD Work Phone: [facility] Work Phone: Start: 08-11-2024 End: 08-11-2024 ambulatory Nohemy Pennington Facility:[facility] Start: 07-26-2024 ambulatory Nohemy Pennington Facility :[facility] Start: 07-13-2024 End: 07-13-2024 Patient encounter procedure BIM NURSE -[facility] Work Phone: Start: 07-13-2024 End: 07-13-[address] Nohemy Pennington MD Work Phone: [facility] Work Phone: Start: 07-12-2024 End: 07-13-2024 ambulatory Nohemy Pennington Facility:[facility] Start: 07-12-2024 End: 07-12-[address] Nohemy Pennington MD -[facility] Work Phone: Start: 05-04-2024 End: 05-06-2024 Telephone encounter Ayaz Ferraro MD Work Phone: [facility] [place] Comment on above: New Patient Procedures Date Procedure Procedure Detail Performing Clinician Start: 07-13-2024 Vitamin D, 25-hydrox y measurement Dr. Nohemy Pennington MD Work Phone: Comment on above: Vitamin D StatusDefi ciency: <20 ng/mL (50nmol/L)Insufficiency: 20-30 ng/mL (50-75 nmol/L)Sufficiency: 30-100 ng/mL (75-250 nmol/L)Toxicity: >100 ng/mL (>250 nmol/L) Plan of Treatment Date Care Activity Detail Author Start: 04-06-2024 Advance Directive Discussion Advance Directive Discussion [facility] Start: 12-06-2023 Covid-19 Vaccine ( season) Covid-19 Vaccine ( season) [facility] Start: 12-06-2023 Influenza vaccination Influenza Vacc ine (#1) [facility] Start: 05-20-2020 Diabetes Screening Diabetes Screenin g [facility] Start: 2013 RSV Vaccine (1 - 1-d ose 75+ series) RSV Vaccine (1 - 1-dose 75+ series) [facility] Start: 03-05-2005 Urine microalbumin profile DTaP,Tdap,Td Vaccine (1 - Tdap) [facility] Start: 01-18-2005 Pneumococcal Vaccine : 50+ (2 of 2 - PCV) Pneumococcal Vaccine: 50+ (2 of 2 - PCV) [facility] Start: 1988 Shingrix Vaccine (1 of 2) Shingrix V accine (1 of 2) [facility] Start: 1956 Anxiety Screening Anxiety Screening [facility] Start: 1956 Depression Screening Depression Scre ening [facility] Immunizations Immunization Date Immunization Notes Care Provider Fa cility 03-14-2024 Covid (Spikevax) Dr. Nohemy Pennington MD Work Phone: [facility] 03-14-2024 influenza, high dose seasonal, preservative-free Dr. Nohemy Pennington MD Work Phone: [facility] 04-03-[address] Nohemy Pennington MD Work Phone: [facility] 01-18-2023 Covid (Spikevax) Dr. Nohemy Pennington MD Work Phone: [facility] 01-18-[address] Nohemy Pennington MD Work Phone: [facility] 01-02-2023 Influenza High-Dose Quadrivalent Dr. Nohemy Pennington MD Work Phone: [facility] 01-28-2022 Covid Moderna Bivale nt Booster Dr. Nohemy Pennington MD Work Phone: [facility] 01-28-2022 Influenza High-Dose Quadrivalent Dr. Nohemy Pennington MD Work Phone: [facility] 07-23-2021 Covid (Moderna) Dr. Nohemy rainey MD Work Phone: [facility] 01-31-2021 Covid (Moderna) Dr. Nohemy rainey MD Work Phone: [facility] 01-14-2021 Influenza High-Dose Quadrivalent Dr. Nohemy Pennington MD Work Phone: [facility] 05-21-2020 Covid (Moderna) Dr. Nohemy rainey MD Work Phone: [facility] 04-24-2020 Covid (Moderna) Dr. Nohemy rainey MD Work Phone: [facility] 01-04-2020 influenza, high dose seasonal, preservative-free Ayaz Ferraro MD Work Phone: [facility] 01-04-2020 influenza, injectabl e, quadrivalent, preservative free Dr. Nohemy Pennington MD Work Phone: [facility] 01-04-2020 influenza virus vacc ine, unspecified formulation Ayaz Ferraro MD Work Phone: [facility] 06-19-2019 tetanus toxoid, redu terrance diphtheria toxoid, and acellular pertussis vaccine, adsorbed Dr. Nohemy Pennington MD Work Phone: [facility] 01-06-2019 influenza, high dose seasonal, preservative-free Ayaz Ferraro MD Work Phone: [facility] 01-14-2018 influenza, high dose seasonal, preservative-free Dr. Nohemy Pennington MD Work Phone: [facility] 01-28-2017 influenza, high dose seasonal, preservative-free Ayaz Ferraro MD Work Phone: [facility] 01-11-2010 influenza, injectabl e, quadrivalent, preservative free Dr. Nohemy Pennington MD Work Phone: [facility] 03-20-2009 novel influenza-H1N1 -09, preservative-free, injectable Dr. Nohemy Pennington MD Work Phone: [facility] 01-01-2009 influenza, injectabl e, quadrivalent, preservative free Dr. Nohemy Pennington MD Work Phone: [facility] 03-04-2005 tetanus and diphther ia toxoids, adsorbed, preservative free, for adult use (2 Lf of tetanus toxoid and 2 Lf of diphtheria toxoid) Ayaz Ferraro MD Work Phone: [facility] 01-19-2004 pneumococcal polysaccharide vaccine, 23 valent Ayaz Freraro MD Work Phone: [facility] Payers Date Payer Category Payer Self-pay 2024 Self-pay [id number] 2018 Private Health Insurance [facility] OPTIONS PPO [id number] 2018-Present [phone] [address] [place] [address] PPO [id number] 2003 Medicare MEDICARE MEDICAR E A AND B [id number] 2003-Present [phone] [address] [address] [place] [address] Medicare [id number] 2003 Medicare [id number] Unknown [id number] Unknown [id number] Unknown [id number] Unknown [id number] Unknown [id number] Unknown [id number] Unknown [id number] Unknown [id number] Unknown [id number] Unknown [id number] Unknown [id number] Unknown [id number] Social History Date Type Detail Facility [facility]: [facility] Start: 05-25-2018 Tobacco use and exposure Smokeless tobacco non-user [facility] Start: 11-20-2021 Alcoholic beverage intake Current non-drinker of alcohol (finding) [facility] Start: 05-25-2018 End: 03-13-2020 History of Social function [facility] Start: 05-25-2018 End: 03-13-2020 Tobacco use panel [facility] National Score (1-10 0), lower number is lower risk Not on file [facility] Start: 1940 Sex assigned at Not on file [facility] Start: 07-12-2024 [facility] Start: 07-15-2024 Sex Male (finding) [facility] Start: 1940 Sex Assigned At Male [facility] Clinical Notes 05-04-2024 to 07-13-2024 Note Date & Type Note Facility 07-13-2024 Evaluation note Diagnosis Onset Date Resolution Essential hypertension acute Ap ril 2024 7:53am Essential hypertension acute Ma y 2024 9:56am Grief noneactive August 11, 2024 9:56am Heart murmur noneactive August 11 9:56am Chronic kidney disease noneactive Ma y 2024 9:56am Elevated TSH noneactive August 11 9:56am Bee sting acute September 27 8:43am Dermatitis acute September 27 8:43am Essential hypertension acute Ju ly 2024 11:23am Rash and nonspecific skin eruption noneactive October 05, 2024 11:23am Heart murmur noneactive October 05 11:23am Chronic kidney disease noneactive Ju ly 2024 11:23am Skin lesion noneactive October 05 11:23am Acute DVT (deep venous thrombosis) noneactive October 05, 2024 11:23am Essential hypertension acute Au sejal 2024 9:57am Heart murmur noneactive November 10, 2024 9:57am Chronic kidney disease noneactive Au sejal 2024 9:57am Acute DVT (deep venous thrombosis) noneactive November 10, 2024 9:57am [facility] Work Phone: 1(466) 468-643904-08-2025 Evaluation note* Diagnosis Onset Date Resolution Status Admit Date Essential hypertension acute Ap ril 2024 2:18pm Establishing care with new doctor, encounter for noneactive July 12, 2024 2:18pm Grief noneactive July 12 2:18pm Heart murmur noneactive July 12, 2 025 2:18pm Essential hypertension acute Ap ril 2024 7:53am [facility] Work Phone: 1(945) 854-816804-08-2025 Evaluation note* Diagnosis Onset Date Resolution Status Admit Date Essential hypertension acute Ap ril 2024 2:18pm Establishing care with new doctor, encounter for noneactive July 12, 2024 2:18pm Grief noneactive July 12 2:18pm Heart murmur noneactive July 12, 2 025 2:18pm Essential hypertension acute Ap ril 2024 7:53am Essential hypertension acute Ma y 2024 9:56am Grief noneactive August 11, 2024 9:56am Heart murmur noneactive August 11 9:56am Chronic kidney disease noneactive Ma y 2024 9:56am Elevated TSH noneactive August 11 9:56am [facility] Work Phone: 1(104) 993-227804-08-2025 Evaluation note* Diagnosis Onset Date Resolution Status Admit Date Essential hypertension acute Ap ril 2024 2:18pm Establishing care with new doctor, encounter for noneactive July 12, 2024 2:18pm Grief noneactive July 12 2:18pm Heart murmur noneactive July 12, 2 025 2:18pm Essential hypertension acute Ap ril 2024 7:53am Essential hypertension acute Ma y 2024 9:56am Grief noneactive August 11, 2024 9:56am Heart murmur noneactive August 11 9:56am Chronic kidney disease noneactive Ma y 2024 9:56am Elevated TSH noneactive August 11 9:56am Bee sting acute September 27 8:43am Dermatitis acute September 27 8:43am Acute DVT (deep venous thrombosis) noneactive October 05, 2024 1 1:23am [facility] Work Phone: 1(775) 176-998501-31-2025 Telephone encounter Note* Telephone Encounter - Paula Castellano MA - 05/06/2024 2:08 PM EST Katherine reached out and patient has found another physician. He was counsin. Paula Castellano MA [facility]01-31-2025 Miscellaneous Notes* Telephone Encounter - Paula Castellano MA - 05/06/2024 2:08 PM EST Katherine reached out and patient has found another physician. He was counsin. aPula Castellano MA * Telephone Encounter - Paula Castellano MA - 05/04/2024 4:41 PM EST Did reach out to Katherine via my chart. Paula Castellano MA * Telephone Encounter - Ayaz Ferraro MD - 05/04/2024 3:58 PM EST Dianna find out from Jade Stanley: how she is related. She has him listed in her chart but just as a relative. * Telephone Encounter - Paula Castellano MA - 05/04/2024 2:[address] Ferraro Only excepts new patient's - immediate close family members only. If he sees / Child/children Grandparents Who has patient been seeing since 2019? Paula Castellano MA' * Telephone Encounter - Tricia Perkins - 05/04/2024 11:19 AM EST Daughter calling to request for patient to be accepted into the practice of Dr. Ferraro. Patient was previously under the care of Dr. Kirby (last seen in 2019). Patient's relative, Jade Stanley, is a current patient of Dr. Ferraro. Please contact patient first to receive authorization to speak with Daughter, Malorie Heath, then notify daughter of provider's decision. PSS confirmed phone number for patient in chart is accurate. [facility] Telephone encounter Note * Telephone Encounter - Paula Castellano MA - 05/04/2024 4:41 PM EST Did reach out to Katherine via my chart. Paula Castellano MA [facility]01-29-2025 Telephone encounter Note* Telephone Encounter - Ayaz Ferraro MD - 05/04/2024 3:58 PM EST Dianna find out from Jade Stanley: how she is related. She has him listed in her chart but just as a relative. [facility] Work Phone: 1(968) 247-530901-29-2025 Telephone encounter Note* Telephone Encounter - Paula Castellano MA - 05/04/2024 2:[address] Ferraro Only excepts new patient's - immediate close family members only. If he sees / Child/children Grandparents Who has patient been seeing since 2019? Paula Castellano MA' [facility]01-29-2025 Telephone encounter Note* Telephone Encounter - Tricia Perkins - 05/04/2024 11:19 AM EST Daughter calling to request for patient to be accepted into the practice of Dr. Ferraro. Patient was previously under the care of Dr. Kirby (last seen in 2019). Patient's relative, Jade Stanley, is a current patient of Dr. Ferraro. Please contact patient first to receive authorization to speak with Daughter, Malorie Heath, then notify daughter of provider's decision. PSS confirmed phone number for patient in chart is accurate. [facility]ative)No reason for referral information [facility]WGal[facility] Work Phone: Summary Purpose Family History No Family History Records Found Relationship Condition Age at Onset Recorded Date/T lisa father Chronic obstructive pulmonary disease Unk nown Relationship Condition Age at Onset Recorded Date/T lisa father Chronic obstructive pulmonary disease Unk nown brother Kidney disorder Unknown Advance Directives No Advanced Directives Records Found Advance Directive Response Recorded Date/ Time Advance Directives Yes April 23, 2016 11:27am Chief Complaint and Reason for Visit Chief Complaint 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 July 12, 2024 2:18pm BP CHECK July 13, 2024 7:53 am 4 WK FU August 11, 2024 9:56am BEE STING/RASH/HIVES ON BACK September 27, 2024 8:43am BLOOD CLOT IN LEG October 05, 2024 11:23 am Reason for Visit Admit Date Essential hypertension July 12, 2024 2 :18pm Establishing care with new doctorrussell for July 12, 2024 2:18pm Grief July 12, 2024 2:18 pm Heart murmur July 12, 2024 2:18 pm Essential hypertension July 13, 2024 7 :53am Essential hypertension August 11, 2024 9:5 6am Grief August 11, 2024 9:56am Heart murmur August 11, 2024 9:56am Chronic kidney disease August 11, 2024 9:5 6am Elevated TSH August 11, 2024 9:56am Bee sting September 27, 2024 8:43 am Dermatitis September 27, 2024 8:43 am Acute DVT (deep venous thrombosis) October 05, 2024 11:23am Chief Complaint Admit Date BP CHECK July 13, 2024 7:53 am 4 WK FU August 11, 2024 9:56am BEE STING/RASH/HIVES ON BACK September 27, 2024 8:43am BLOOD CLOT IN LEG October 05, 2024 11:23 am 3 M FU November 10, 2024 9:5 7am Reason for Visit Admit Date Essential hypertension July 13, 2024 7 :53am Essential hypertension August 11, 2024 9:5 6am Grief August 11, 2024 9:56am Heart murmur August 11, 2024 9:56am Chronic kidney disease August 11, 2024 9:5 6am Elevated TSH August 11, 2024 9:56am Bee sting September 27, 2024 8:43 am Dermatitis September 27, 2024 8:43 am Essential hypertension October 05, 2024 11 :23am Rash and nonspecific skin eruption October 05, 2024 11:23am Heart murmur October 05, 2024 11:23 am Chronic kidney disease October 05, 2024 11 :23am Skin lesion October 05, 2024 11:23 am Acute DVT (deep venous thrombosis) October 05, 2024 11:23am Essential hypertension November 10, 2024 9:57am Heart murmur November 10, 2024 9:5 7am Chronic kidney disease November 10, 2024 9:57am Acute DVT (deep venous thrombosis) Augus t 2024 9:57am Additional Source Comments Source Comments (unrecognize d section and content) In the event this informatio n is protected by the Federal Confidentiality of Alcohol and Drug Abuse Patient Records regulations: The Federal rules restrict any use of the information to criminally investigate or prosecute any alcohol or drug abuse patient.[facility] Reason for Visit (unrecogniz ed section and content) Reason Comments New Patient (unrecognized sect ion and content) No Status Records FoundNo Status Records FoundNo Status Records Found INFORMATION SOURCE (unrecogn ized section and content) DATE CREATED AUTHOR 05/08/2024 [facility] DATE CREATED AUTHOR AUTHOR'S ORGANIZ ATION 10/27/2024 [facility] DATE CREATED AUTHOR AUTHOR'S ORGANIZ ATION 11/12/2024 [facility] Care Teams (unrecognized sec tion and content) Team Status: Active Member Role Status Dates Dr. Ashish Kirby III, MD Family Provider Active Dr. Nohemy Pennington MD Primary Care Provider Active Team Status: Inactive Member Role Status Dates Dr. Nohemy Pennington MD Attending Provider Active Start: July 12, 2024 End: July 12, 2024 Team Status: Inactive Member Role Status Dates BIM NURSE Attending Provider Active Start: 2024 End: July 13, 2024 Team Status: Inactive Member Role Status Dates Dr. Nohemy Pennington MD Primary Care Provider Active Start: July 13, 2024 End: July 13, 2024 Dr. Nohemy Pennington MD Attending Provider Active Start: July 13, 2024 End: July 13, 2024 Dr. Nohemy Pennington MD Referring Provider Active Start: July 13, 2024 End: July 13, 2024 Team Status: Active Member Role Status Dates Dr. Nohemy Pennington MD Primary Care Provider Active Team Status: Inactive Member Role Status Dates Dr. Nohemy Pennington MD Attending Provider Active Start: July 13, 2024 End: July 13, 2024 Team Status: Inactive Member Role Status Dates Dr. Nohemy Pennington MD Primary Care Provider Active Start: August 11, 2024 End: August 11, 2024 Dr. Nohemy Pennington MD Attending Provider Active Start: August 11, 2024 End: August 11, 2024 Dr. Nohemy Pennington MD Referring Provider Active Start: August 11, 2024 End: August 11, 2024 Team Status: Inactive Member Role Status Dates Dr. Nohemy Pennington MD Primary Care Provider Active Start: September 27, 2024 End: September 27, 2024 Dr. Nohemy Pennington MD Referring Provider Active Start: September 27, 2024 End: September 27, 2024 Roberto Carlos Tobias PA, PA Attending Provider Active Start: September 27, 2024 End: September 27, 2024 Team Status: Active Member Role/Relationship Status Dates Dr. Nohemy Pennington MD Primary Care Provider Active Team Status: Inactive Member Role/Relationship Status Dates Dr. Nohemy Pennington MD Attending Provider Active Start: July 12, 2024 End: July 12, 2024 Team Status: Inactive Member Role/Relationship Status Dates Dr. Nohemy Pennington MD Attending Provider Active Start: July 13, 2024 End: July 13, 2024 Team Status: Inactive Member Role/Relationship Status Dates Dr. Nohemy Pennington MD Primary Care Provider Active Start: July 13, 2024 End: July 13, 2024 Dr. Nohemy Pennington MD Attending Provider Active Start: July 13, 2024 End: July 13, 2024 Dr. Nohemy Pennington MD Referring Provider Active Start: July 13, 2024 End: July 13, 2024 Team Status: Inactive Member Role/Relationship Status Dates Dr. Nohemy Pennington MD Primary Care Provider Active Start: August 11, 2024 End: August 11, 2024 Dr. Nohemy Pennington MD Attending Provider Active Start: August 11, 2024 End: August 11, 2024 Dr. Nohemy Pennington MD Referring Provider Active Start: August 11, 2024 End: August 11, 2024 Team Status: Inactive Member Role/Relationship Status Dates Dr. Nohemy Pennington MD Primary Care Provider Active Start: August 11, 2024 End: August 11, 2024 Dr. Nohemy Pennington MD Attending Provider Active Start: August 11, 2024 End: August 11, 2024 Dr. Nohemy Pennington MD Referring Provider Active Start: August 11, 2024 End: August 11, 2024 Team Status: Inactive Member Role/Relationship Status Dates Dr. Nohemy Pennington MD Primary Care Provider Active Start: September 27, 2024 End: September 27, 2024 Dr. Nohemy Pennington MD Referring Provider Active Start: September 27, 2024 End: September 27, 2024 Roberto Carlos Tobias PA, PA Attending Provider Active Start: September 27, 2024 End: September 27, 2024 Team Status: Inactive Member Role/Relationship Status Dates Dr. Nohemy Pennington MD Primary Care Provider Active Start: October 05, 2024 End: October 05, 2024 Dr. Nohemy Pennington MD Attending Provider Active Start: October 05, 2024 End: October 05, 2024 Dr. Nohemy Pennington MD Referring Provider Active Start: October 05, 2024 End: October 05, 2024 Team Status: Inactive Member Role/Relationship Status Dates Dr. Nohemy Pennington MD Attending Provider Active Start: July 13, 2024 End: July 13, 2024 Team Status: Inactive Member Role/Relationship Status Dates Dr. Nohemy Pennington MD Primary Care Provider Active Start: July 13, 2024 End: July 13, 2024 Dr. Nohemy Pennington MD Attending Provider Active Start: July 13, 2024 End: July 13, 2024 Dr. Nohemy Pennington MD Referring Provider Active Start: July 13, 2024 End: July 13, 2024 Team Status: Inactive Member Role/Relationship Status Dates Dr. Nohemy Pennington MD Primary Care Provider Active Start: August 11, 2024 End: August 11, 2024 Dr. Nohemy Pennington MD Attending Provider Active Start: August 11, 2024 End: August 11, 2024 Dr. Nohemy Pennington MD Referring Provider Active Start: August 11, 2024 End: August 11, 2024 Team Status: Inactive Member Role/Relationship Status Dates Dr. Nohemy Pennington MD Primary Care Provider Active Start: September 27, 2024 End: September 27, 2024 Dr. Nohemy Pennington MD Referring Provider Active Start: September 27, 2024 End: September 27, 2024 Roberto Carlos Tobias PA, PA Attending Provider Active Start: September 27, 2024 End: September 27, 2024 Team Status: Inactive Member Role/Relationship Status Dates Dr. Nohemy Pennington MD Primary Care Provider Active Start: October 05, 2024 End: October 05, 2024 Dr. Nohemy Pennington MD Attending Provider Active Start: October 05, 2024 End: October 05, 2024 Dr. Nohemy Pennington MD Referring Provider Active Start: October 05, 2024 End: October 05, 2024 Team Status: Inactive Member Role/Relationship Status Dates Dr. Nohemy Pennington MD Primary Care Provider Active Start: November 10, 2024 End: November 10, 2024 Dr. Nohemy Pennington MD Attending Provider Active Start: November 10, 2024 End: November 10, 2024 Dr. Nohemy Pennington MD Referring Provider Active Start: November 10, 2024 End: November 10, 2024 Goals (unrecognized section and content) Goals may be documented in a n alternate sectionGoals may be documented in an alternate sectionGoals may be documented in an alternate sectionGoals may be documented in an alternate sectionGoals may be documented in an alternate section FOR RECORDS PERTAINING TO PATIENTS WHO ARE OR HAVE BEEN ENROLLED IN A CHEMICAL DEPENDENCY/SUBSTANCEABUSE PROGRAM, SOME INFORMATION MAY BE OMITTED. This clinical summary was aggregated from multiple sources. Caution should be exercised in using it in the provision of clinical care. This summary normalizes information from multiple sources, and as a consequence, information in this document may materially change the coding, format and clinical context of patient data. In addition, data may be omitted in some cases. CLINICAL DECISIONS SHOULD BE BASED ON THE PRIMARY CLINICAL RECORDS. [facility]. provides no warranty or guarantee of the accuracy or completeness of information in this document.
--- OUTSIDE RECORDS SUMMARY | 2024-11-14 13:10 | XMS RPT_ITS | CCD ---
Author Organization [facility] Care Team Providers Care Butter Grader Name Role Phone Unavailable Primary Care Provider Unavailjulieta e Gorge ROSS, Dr. Slater Attending Provider NURSE, BIM Attending Provider Unavailable Gorge ROSS, Dr. Slater Primary Care Provider [phone] Dr. Nohemy Pennington MD Referring Provider Roberto Carlos Raymond Attending Provider [phone] Gorge ROSS, Dr. Slater Attending Provider Ogrge, Nohemy Primary Care Unavailable Gorge, Nohemy Attending Unavailable Gorge, Nohemy Referring Unavailable Gorge, Nohemy Attending Unavailable [place], Nohemy Primary Care Unavailable [place], Nohemy Attending Unavailable Gorge, Nohemy Referring Unavailable Gorge, Nohemy Attending Unavailable [place], Nohemy Primary Care Unavailable Gorge, Nohemy Attending Unavailable [place], Nohemy Referring Unavailable Roberto Carlos Raymond Attending Unavailable [place], Nohemy Primary Care Unavailable Gorge, Nohemy Referring Unavailable [place], Nohemy Primary Care Unavailable [place], Nohemy Attending Unavailable [place], Nohemy Referring Unavailable [place], Nohemy Referring Unavailable Gorge, Nohemy Attending Unavailable [place], Nohemy Primary Care Unavailable [place], Nohemy Primary Care Unavailable [place], Nohemy Referring Unavailable [place], Nohemy Attending Unavailable Gorge, Nohemy Referring Unavailable [place], Nohemy Primary Care Unavailable Gorge, Nohemy Attending Unavailable Allergies Allergy Classification Reported Allergen(s) Allergy Type Date of Onset Reaction(s) Facility (6 sources) Ampicillin Drug Allergy 03-18-20 05 [facility] (1 source) Bacitracin / Polymyxin B Drug Allergy 03-19-20 05 [facility] Work Phone: (6 sources) Clindamycin Drug Allergy 09-30-19 15 Diarrhea [facility] (5 sources) Bacitracin Drug Allergy 07-14-19 [place] (5 sources) hydroCHLOROthiazide Drug Allergy 07-14-19 Vomiting [facility] (6 sources) polymyxin B sulfate; Translations: [polymyxin B sulfate] Allergy to substance 07-14-19 [place] (1 source) Ampicillin Drug Allergy 11-11-19 [facility] (1 source) Bacitracin Drug Allergy 11-11-19 [facility] (1 source) Clindamycin Drug Allergy 11-11-19 [facility] (1 source) hydroCHLOROthiazide Drug Allergy 11-11-19 [facility] Medications Current Medications Medication Drug [...] )on 11-10-2024 BUN/CRE 11.5 RATIO Normal 10-20 [facility] Comment on above: Performed By: #### L 500.2500 ####[facility] [address] [place], [address] Calcium [Mass/Vol] 9.6 mg/dL Normal 7.6-11.0 [facility] Comment on above: Performed By: #### L 500.2500 ####[facility] [address] [place], [address] Chloride [Moles/Vol] 103 mmol/L Normal 98-108 [facility] Comment on above: Performed By: #### L 500.2500 ####[facility] [address] [place], [address] CO2 [Moles/Vol] 21.3 mmol/L Normal 21.0-32.0 [facility] Comment on above: Performed By: #### L 500.2500 ####[facility] [address] [place], [address] Creatinine [Mass/Vol] 1.86 mg/dL High 0.70-1.20 [facility] Comment on above: Performed By: #### L 500.2500 ####[facility] [address] [place], [address] GAP 13 Normal 5-15 [facility] Comment on above: Performed By: #### L 500.2500 ####[facility] [address] [place], [address] GFR/1.73 sq M.predicted among non-blacks MDRD (S/P/Bld) [Vol rate/Area] 35 mL/min/{1.73_m2} Low >60 [facility] Comment on above: Result Comment: mL/m in/1.73m2 CKD-EPI Creatinine Equation (2020) Performed By: #### L 500.2500 ####[facility] [address] [place], [address] Glucose [Mass/Vol] 103 mg/dL High 70-99 [facility] Comment on above: Performed By: #### L 500.2500 ####[facility] [address] [place], [place], [address] Potassium [Moles/Vol] 4.9 mmol/L Normal 3.3-5.1 [facility] Comment on above: Performed By: #### L 500.2500 ####[facility] [address] [place], [place], [phone] Sodium [Moles/Vol] 138 mmol/L Normal 133-145 [facility] Comment on above: Performed By: #### L 500.2500 ####[facility] [address] [place], [place], [address] Urea nitrogen [Mass/Vol] 21 mg/dL High 4-19 [facility] Comment on above: Performed By: #### L 500.2500 ####[facility] [address] [place], [place], [address] Internal Medicine Office Vis itodeanna 11-09-2024 Internal Medicine Office Visit [facility] [address] [place], [place] [address] OFFICE VISIT Date of Service: 11/10/24 MR#: [id number] Acct: [id number] Name: SILVIOAGATHA Amy Rep #: [id number] : 1940 Provider: Dr. Nohemy garcia MD Age/Sex: 84/M Location: [facility] Status: Signed Intake Vital Signs 08/11/24 10:02 [...] air Intake Visit Reasons: 3 M FU Offc Spec Required: No Accompanied by: Daughter Is patient [...] none current occupational status: retired current occupation: [employer] 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 His skin biopsy through [facility] came back as inconclusive. He has a [...] cold intoler (more content not included)... Normal [facility] Internal Medicine Office Vis ronny 10-04-2024 Internal Medicine Office Visit [facility] [place] [address] [place] [address] OFFICE VISIT Date of Service: 10/05/24 MR#: [id number] Acct: [id number] Name: AGATHA HEATH Rep #: [id number] : 1940 Provider: Dr. Nohemy garcia MD Age/Sex: 84/M Location: [facility] Status: Signed Intake Vital Signs 09/27/24 08:47 10/05/24 11:37 Height 5 ft 7 in 5 ft 7 in Weight: 185 lb BMI 29.0 BP 170/80 H Blood Pressure Location Lt brachial Position Sitting Respiration 16 Pulse 70 Pulse Source Monitor Temp 98.6 F Temp Source Temporal Pulse Oximetry (%) 97 Oxygen Delivery Method room air Intake Visit Reasons: BLOOD CLOT IN LEG Offc Spec Required: No Accompanied by: Daughter Is patient [...] more days left. Pt was seen at [facility] last week and had some biopsies done and will get results when he goes in next week. It was thought amlodipine caused the rash, the rash has improved but dc'd the med. Pt is on the prednisone though. Pt has not been monitoring bp's at home. [facility] Medical History Dermatitis Bee sting Skin cancer Surgical History H/O removal of cyst S/P skin cancer resection Family History Father COPD (chronic obstructive pulmonary disease) Brother Kidney disease ESRD Social History household members: none current occupational status: retired current occupation: [employer] Smoking Status: Former smoker alcohol intake: never [...] fully resolved. He states he did see [facility] since then and had a skin biopsy, which is still pending. He has not been checking his blood pressure at home since he was last seen. At his last visit, amlodipine was increased, but he has since stopped taking it. The patient reports that he was seen by a vascular provider down in [place] who stopped his blood pressure medication stating [...] pain, ch (more content not included)... Normal [facility] Urgent Care Visit Reporton 0 09-27-2024 Urgent Care Visit Report [facility] [address], [address] [place] [address] OFFICE VISIT Date of Service: 09/27/24 MR#: [id number] Acct: [id number] Name: AGATHA HEATH Rep #: [id number] : 1940 Provider: LAUREN Palomino Age/Sex: 84/M Location: [facility] Status: Signed Intake Vital Signs 08/11/24 10:02 [...] his arms. Patient states it is seeping. [facility] Medical History (Updated 09/27/24 @ 09:50 by Roberto Carlos AGUILAR, PA) Dermatitis Bee sting Skin cancer Surgical History H/O removal of cyst S/P skin cancer resection Family History (Updated 08/11/24 @ 10:[address] Nohemy Pennington MD) Father COPD (chronic obstructive pulmonary disease) Brother Kidney disease ESRD Social History household members: none current occupational status: retired current occupation: [employer] Smoking Status: Former smoker alcohol intake: never [...] fever, chills, sweats, lightheadedness/dizzin ess, nausea/vomiting. No pplg-ydi-lpengjv products taken to assist, though he is [...] no acute distress Orientation: alert and awake [facility] Head: normal to inspection Ears: hearing grossly [...] patient a (more content not included)... Normal [facility] Anion gap in Serum or Plasma Ordered By: Nohemy Pennington on 08-11-2024 Anion gap [Moles/Vol] 12 mmol/L 08-18 [facility] BUN/creatinine ratioOrdered By: Nohemy Pennington on 08-11-2024 Urea nitrogen/Creatinine [Mass ratio] 11.0 mg/mg 01-23 [facility] Basic Metabolic Profile (BMP )on 08-11-2024 BUN/CRE 11.0 RATIO Normal 01-23 [facility] Comment on above: Performed By: #### L 500.2500, L100.0500, L501.9520 ####[facility] [address] [place], [address] Calcium [Mass/Vol] 9.4 mg/dL Normal 7.6-11.0 [facility] Comment on above: Performed By: #### L 500.2500, L100.0500, L501.9520 ####[facility] [address] [place], [address] Chloride [Moles/Vol] 106 mmol/L Normal 98-108 [facility] Comment on above: Performed By: #### L 500.2500, L100.0500, L501.9520 ####[facility] [address] [place], [address] CO2 [Moles/Vol] 20.5 mmol/L Low 21.0-32.0 [facility] Comment on above: Performed By: #### L 500.2500, L100.0500, L501.9520 ####[facility] [address] [place], [address] Creatinine [Mass/Vol] 1.80 mg/dL High 0.70-1.20 [facility] Comment on above: Performed By: #### L 500.2500, L100.0500, L501.9520 ####[facility] [address] [place], [address] GAP 12 Normal 5-15 [facility] Comment on above: Performed By: #### L 500.2500, L100.0500, L501.9520 ####[facility] [address] [place], [address] GFR/1.73 sq M.predicted among non-blacks MDRD (S/P/Bld) [Vol rate/Area] 36 mL/min/{1.73_m2} Low >60 [facility] Comment on above: Result Comment: mL/m in/1.73m2 CKD-EPI Creatinine Equation (2020) Performed By: #### L 500.2500, L100.0500, L501.9520 ####[facility] [address] [place], [address] Glucose [Mass/Vol] 120 mg/dL High 70-99 [facility] Comment on above: Performed By: #### L 500.2500, L100.0500, L501.9520 ####[facility] [address] [place], [address] Potassium [Moles/Vol] 5.1 mmol/L Normal 3.3-5.1 [facility] Comment on above: Performed By: #### L 500.2500, L100.0500, L501.9520 ####[facility] [address] [place], [address] Sodium [Moles/Vol] 139 mmol/L Normal 133-145 [facility] Comment on above: Performed By: #### L 500.2500, L100.0500, L501.9520 ####[facility] [address] [place], [address] Urea nitrogen [Mass/Vol] 20 mg/dL High 4-19 [facility] Comment on above: Performed By: #### L 500.2500, L100.0500, L501.9520 ####[facility] [address] [place], [address] CBC-Complete Blood Cnt No Di ffon 08-11-2024 Erythrocyte distribution width (RBC) [Ratio] 14.3 % Normal 11.6-14.6 [facility] Comment on above: Performed By: #### L 500.2500, L100.0500, L501.9520 ####[facility] [address] [place], [address] Hematocrit (Bld) [Volume fraction] 39.3 % Low 40-54 [facility] Comment on above: Performed By: #### L 500.2500, L100.0500, L501.9520 ####[facility] [address] [place], [address] Hemoglobin (Bld) [Mass/Vol] 12.9 g/dL Low 13.0-16.5 [facility] Comment on above: Performed By: #### L 500.2500, L100.0500, L501.9520 ####[facility] [address] [place], [address] MCH (RBC) [Entitic mass] 28.7 pg Normal 27.0-32.0 [facility] Comment on above: Performed By: #### L 500.2500, L100.0500, L501.9520 ####[facility] [address] [place], [address] MCHC (RBC) [Mass/Vol] 32.8 g/dL Normal 32-36 [facility] Comment on above: Performed By: #### L 500.2500, L100.0500, L501.9520 ####[facility] [address] [place], [address] MCV (RBC) [Entitic vol] 87.3 fL Normal 80-94 [facility] Comment on above: Performed By: #### L 500.2500, L100.0500, L501.9520 ####[facility] [address] [place], [address] Platelet mean volume (Bld) [Entitic vol] 10.2 fL Normal 6.2-12.0 [facility] Comment on above: Performed By: #### L 500.2500, L100.0500, L501.9520 ####[facility] [address] [place], [address] Platelets (Bld) [#/Vol] 266 10*3/uL Normal 150-450 [facility] Comment on above: Performed By: #### L 500.2500, L100.0500, L501.9520 ####[facility] [address] [place], [address] RBC (Bld) [#/Vol] 4.50 10*6/uL Low 4.6-6.2 [facility] Comment on above: Performed By: #### L 500.2500, L100.0500, L501.9520 ####[facility] [address] [place], [address] RDW SD 46.0 fl High 35.1-43.9 [facility] Comment on above: Performed By: #### L 500.2500, L100.0500, L501.9520 ####[facility] [address] [place], [address] WBC (Bld) [#/Vol] 8.2 10*3/uL Normal 4.4-11.0 [facility] Comment on above: Performed By: #### L 500.2500, L100.0500, L501.9520 ####[facility] [address] [place], [address] Carbon dioxide, total [Moles /volume] in Central venous bloodOrdered By: Nohemy Pennington on 08-11-2024 CO2 [Moles/Vol] 20.5 mmol/L Low 21.0-32.0 [facility] Chloride assayOrdered By: Simone Pennington on 08-11-2024 Chloride [Moles/Vol] 106 mmol/L 98-108 [facility] Erythrocyte distribution wid th ratioOrdered By: Nohemy Pennington on 08-11-2024 Erythrocyte distribution width (RBC) [Ratio] 14.3 % 11.6-14.6 [facility] Erythrocyte distribution wid th standard deviationOrdered By: Nohemy Pennington on 08-11-2024 Erythrocyte distribution width (RBC) [Ratio] 46.0 fl High 35.1-43.9 [facility] Glomerular filtration rate ( GFR) estimation/1.73 sq m using serum, plasma, or whole bOrdered By: Nohemy Pennington on 08-11-2024 GFR/1.73 sq M.predicted among non-blacks MDRD (S/P/Bld) [Vol rate/Area] 36 mL/min/{1.73_m2} Low >60 [facility] Comment on above: mL/min/1.73m2 CKD-EP I Creatinine Equation (2020) Hematocrit Auto (Bld) [Volum e fraction]Ordered By: Nohemy Pennington on 08-11-2024 Hematocrit (Bld) [Volume fraction] 39.3 % Low 40-54 [facility] Hemoglobin measurementOrdere d By: Nohemy Pennington on 08-11-2024 Hemoglobin (Bld) [Mass/Vol] 12.9 g/dL Low 13.0-16.5 [facility] MCV (mean corpuscular volume ) determinationOrdered By: Nohemy Pennington on 08-11-2024 MCV (RBC) [Entitic vol] 87.3 fL 80-94 W [facility] Mean corpuscular hemoglobin (MCH) determinationOrdered By: Nohemy Pennington on 08-11-2024 MCH (RBC) [Entitic mass] 28.7 pg 27.0-32.0 [facility] Mean corpuscular hemoglobin concentration (MCHC) determinationOrdered By: Nohemy Pennington on 08-11-2024 MCHC (RBC) [Mass/Vol] 32.8 g/dL 32-36 [facility] Mean platelet volume determi nationOrdered By: Nohemy Pennington on 08-11-2024 Platelet mean volume (Bld) [Entitic vol] 10.2 fL 6.2-12.0 [facility] Platelet countOrdered By: Simone Pennington on 08-11-2024 Platelets (Bld) [#/Vol] 266 10*3/uL 150-450 [facility] Potassium measurement (mass/ volume)Ordered By: Nohemy Pennington on 08-11-2024 Potassium (Unsp spec) [Mass/Vol] 5.1 mmol/L 3.3-5.1 [facility] RBC Auto (Bld) [#/Vol]Ordere d By: Nohemy Pennington on 08-11-2024 RBC (Bld) [#/Vol] 4.50 10*6/uL Low 4.6-6.2 [facility] Serum creatinine measurement (mass/volume)Ordered By: Nohemy Pennington on 08-11-2024 Creatinine [Mass/Vol] 1.80 mg/dL High 0.70-1.20 [facility] Serum glucose measurement (m ass/volume)Ordered By: Nohemy Pennington on 08-11-2024 Glucose [Mass/Vol] 120 mg/dL High 70-99 [facility] Serum or plasma calcium anant urement (mass/volume)Ordered By: Nohemy Pennington on 08-11-2024 Calcium [Mass/Vol] 9.4 mg/dL 7.6-11.0 [facility] Serum or plasma urea nitroge n measurement (mass/volume)Ordered By: Nohemy Pennington on 08-11-2024 Urea nitrogen [Mass/Vol] 20 mg/dL High 4-19 [facility] Sodium levelOrdered By: Stephanie Pennington on 08-11-2024 Sodium [Moles/Vol] 139 mmol/L 133-145 [facility] TSH DL <= 0.005 mIU/L QnOrde red By: Nohemy Pennington on 08-11-2024 TSH Qn 5.360 uIU/mL High 0.300-4.200 [facility] Thyroid Stim Hormone (TSH)on 08-11-2024 TSH 5.360 uIU/mL High 0.300-4.200 [facility] Comment on above: Performed By: #### L 500.2500, L100.0500, L501.9520 ####[facility] [address] [place], [address] White blood cell (WBC) count Ordered By: Nohemy Pennington on 08-11-2024 WBC (Bld) [#/Vol] 8.2 10*3/uL 4.4-11.0 [facility] Internal Medicine Office Vis iton 08-10-2024 Internal Medicine Office Visit [facility] [address] [place] [address] [address] [place], [place] [id number] OFFICE VISIT Date of Service: 08/11/24 MR#: [id number] Acct: [id number] Name: AGATHA HEATH Rep #: [id number] : 1940 Provider: Dr. Nohemy garcia MD Age/Sex: 84/M Location: [facility] Status: Signed Intake Vital Signs 07/12/24 14:33 [...] Reasons: 4 WK FU Chief Complaint: bp Offc Spec Required: No Is patient in pain?: No [...] rather bid as written. Is taking 100mg. [facility] Medical History Skin cancer Surgical History H/O [...] intolerance, increased (more content not included)... Normal [facility] Absolute lymphocyte countOrd ered By: Nohemy Pennington on 07-13-2024 Lymphocytes Auto (Unsp spec) [#/Vol] 1.26 10*3/uL 0.83-4.51 [facility] Absolute neutrophil countOrd ered By: Nohemy Pennington on 07-13-2024 Neutrophils (Bld) [#/Vol] 5.4 10*3/uL 2.0-7.7 [facility] Anion gap in Serum or Plasma Ordered By: Nohemy Pennington on 07-13-2024 Anion gap [Moles/Vol] 10 mmol/L 5-15 [facility] Automated lymphocyte count a s percentage of total leukocytesOrdered By: Nohemy Pennington on 07-13-2024 Lymphocytes/100 WBC Auto (Unsp spec) 16.4 % Low 19-41 [facility] BUN/creatinine ratioOrdered By: Nohemy Pennington on 07-13-2024 Urea nitrogen/Creatinine [Mass ratio] 11.7 mg/mg 10-20 [facility] Basophil percentageOrdered B y: Nohemy Pennington on 07-13-2024 Basophils/100 WBC (Bld) 0.8 % 0-1 [facility] Bilirubin, totalOrdered By: Nohemy Pennington on 07-13-2024 Bilirubin [Mass/Vol] 0.43 mg/dL 0.00-1.30 [facility] CBC W/Diff, Automatedon 04-0 9-2025 Absolute Lymph 1.26 X10 3/uL Normal 0.83-4.51 [facility] Comment on above: Performed By: #### L 500.4100, L100.0100, L500.4050, L506.1001, L501.9520 #### [facility] [address] [place], [address] Absolute Neut 5.4 X10 3/uL Normal 2.0-7.7 [facility] Comment on above: Performed By: #### L 500.4100, L100.0100, L500.4050, L506.1001, L501.9520 #### [facility] [address] [place], [address] Basophils/100 WBC (Bld) 0.8 % Normal 0-1 [facility] Comment on above: Performed By: #### L 500.4100, L100.0100, L500.4050, L506.1001, L501.9520 #### [facility] [address] [place], [address] Eosinophils/100 WBC (Bld) 4.3 % Normal 0-5 [facility] Comment on above: Performed By: #### L 500.4100, L100.0100, L500.4050, L506.1001, L501.9520 #### [facility] [address] [place], [address] Erythrocyte distribution width (RBC) [Ratio] 14.8 % High 11.6-14.6 [facility] Comment on above: Performed By: #### L 500.4100, L100.0100, L500.4050, L506.1001, L501.9520 #### [facility] [address] [place], [address] Hematocrit (Bld) [Volume fraction] 39.6 % Low 40-54 [facility] Comment on above: Performed By: #### L 500.4100, L100.0100, L500.4050, L506.1001, L501.9520 #### [facility] [address] [place], [address] Hemoglobin (Bld) [Mass/Vol] 12.6 g/dL Low 13.0-16.5 [facility] Comment on above: Performed By: #### L 500.4100, L100.0100, L500.4050, L506.1001, L501.9520 #### [facility] [address] [place], [address] IG% 0.400 Normal 0.0-0.9 [facility] Comment on above: Result Comment: IG% - Immature Granulocytes (promyelocytes, myelocytes and metamyelocytes) > 1% indicates that a LEFT SHIFT is Present. Performed By: #### L 500.4100, L100.0100, L500.4050, L506.1001, L501.9520 #### [facility] [address] [place], [address] Lymphocytes/100 WBC (Bld) 16.4 % Low 19-41 [facility] Comment on above: Performed By: #### L 500.4100, L100.0100, L500.4050, L506.1001, L501.9520 #### [facility] [address] [place], [address] MCH (RBC) [Entitic mass] 28.1 pg Normal 27.0-32.0 [facility] Comment on above: Performed By: #### L 500.4100, L100.0100, L500.4050, L506.1001, L501.9520 #### [facility] [address] [place], [address] MCHC (RBC) [Mass/Vol] 31.8 g/dL Low 32-36 [facility] Comment on above: Performed By: #### L 500.4100, L100.0100, L500.4050, L506.1001, L501.9520 #### [facility] [address] [place], [address] MCV (RBC) [Entitic vol] 88.4 fL Normal 80-94 [facility] Comment on above: Performed By: #### L 500.4100, L100.0100, L500.4050, L506.1001, L501.9520 #### [facility] [address] [place], [address] Monocytes/100 WBC (Bld) 8.5 % Normal 0-10 [facility] Comment on above: Performed By: #### L 500.4100, L100.0100, L500.4050, L506.1001, L501.9520 #### [facility] [address] [place], [address] Neutrophils/100 WBC (Bld) 69.6 % Normal 47-70 [facility] Comment on above: Performed By: #### L 500.4100, L100.0100, L500.4050, L506.1001, L501.9520 #### [facility] [address] [place], [address] Nucleated RBC (Bld) [#/Vol] 0 10*3/uL Normal 0-5 [facility] Comment on above: Performed By: #### L 500.4100, L100.0100, L500.4050, L506.1001, L501.9520 #### [facility] [address] [place], [address] Platelet mean volume (Bld) [Entitic vol] 9.9 fL Normal 6.2-12.0 [facility] Comment on above: Performed By: #### L 500.4100, L100.0100, L500.4050, L506.1001, L501.9520 #### [facility] [address] [place], [address] Platelets (Bld) [#/Vol] 320 10*3/uL Normal 150-450 [facility] Comment on above: Performed By: #### L 500.4100, L100.0100, L500.4050, L506.1001, L501.9520 #### [facility] [address] [place], [address] RBC (Bld) [#/Vol] 4.48 10*6/uL Low 4.6-6.2 [facility] Comment on above: Performed By: #### L 500.4100, L100.0100, L500.4050, L506.1001, L501.9520 #### [facility] [address] [place], [address] RDW SD 47.8 fl High 35.1-43.9 [facility] Comment on above: Performed By: #### L 500.4100, L100.0100, L500.4050, L506.1001, L501.9520 #### [facility] [address] [place], [address] WBC (Bld) [#/Vol] 7.7 10*3/uL Normal 4.4-11.0 [facility] Comment on above: Performed By: #### L 500.4100, L100.0100, L500.4050, L506.1001, L501.9520 #### [facility] [address] [place], [address] Calculated very low density lipoprotein (VLDL) cholesterol measurementOrdered By: Nohemy Pennington on 07-13-2024 Calculated very low density lipoprotein (VLDL) cholesterol measurement 20 mg/dL 5-40 [facility] VLDL Cholesterol 20 mg/dL 5-40 [facility] Carbon dioxide, total [Moles /volume] in Central venous bloodOrdered By: Nohemy Pennington on 07-13-2024 CO2 [Moles/Vol] 23.1 mmol/L 21.0-32.0 [facility] Chloride assayOrdered By: Simone Pennington on 07-13-2024 Chloride [Moles/Vol] 105 mmol/L 98-108 [facility] Comprehensive Metabolic Prof ilon 07-13-2024 Albumin [Mass/Vol] 3.9 g/dL Normal 3.4-4.8 [facility] Comment on above: Performed By: #### L 500.4100, L100.0100, L500.4050, L506.1001, L501.9520 #### [facility] [address] [place], [address] Albumin/Globulin [Mass ratio] 1.3 {ratio} Normal 0.9-2.4 [facility] Comment on above: Performed By: #### L 500.4100, L100.0100, L500.4050, L506.1001, L501.9520 #### [facility] [address] [place], [address] ALK PHOS 112 U/L Normal 40-129 [facility] Comment on above: Performed By: #### L 500.4100, L100.0100, L500.4050, L506.1001, L501.9520 #### [facility] [address] [place], [address] ALT [Catalytic activity/Vol] 16 U/L Normal <=46 [facility] Comment on above: Performed By: #### L 500.4100, L100.0100, L500.4050, L506.1001, L501.9520 #### [facility] [address] [place], [address] AST [Catalytic activity/Vol] 18 U/L Normal <=37 [facility] Comment on above: Performed By: #### L 500.4100, L100.0100, L500.4050, L506.1001, L501.9520 #### [facility] [address] [place], [address] Bilirubin [Mass/Vol] 0.43 mg/dL Normal 0.00-1.30 [facility] Comment on above: Performed By: #### L 500.4100, L100.0100, L500.4050, L506.1001, L501.9520 #### [facility] [address] [place], [address] BUN/CRE 11.7 RATIO Normal 10-20 [facility] Comment on above: Performed By: #### L 500.4100, L100.0100, L500.4050, L506.1001, L501.9520 #### [facility] [address] [place], [address] Calcium [Mass/Vol] 9.7 mg/dL Normal 7.6-11.0 [facility] Comment on above: Performed By: #### L 500.4100, L100.0100, L500.4050, L506.1001, L501.9520 #### [facility] [address] [place], [address] Chloride [Moles/Vol] 105 mmol/L Normal 98-108 [facility] Comment on above: Performed By: #### L 500.4100, L100.0100, L500.4050, L506.1001, L501.9520 #### [facility] [address] [place], [address] CO2 [Moles/Vol] 23.1 mmol/L Normal 21.0-32.0 [facility] Comment on above: Performed By: #### L 500.4100, L100.0100, L500.4050, L506.1001, L501.9520 #### [facility] [address] [place], [address] Creatinine [Mass/Vol] 1.74 mg/dL High 0.70-1.20 [facility] Comment on above: Performed By: #### L 500.4100, L100.0100, L500.4050, L506.1001, L501.9520 #### [facility] [address] [place], [address] GAP 10 Normal 5-15 [facility] Comment on above: Performed By: #### L 500.4100, L100.0100, L500.4050, L506.1001, L501.9520 #### [facility] [address] [place], [address] GFR/1.73 sq M.predicted among non-blacks MDRD (S/P/Bld) [Vol rate/Area] 38 mL/min/{1.73_m2} Low >60 [facility] Comment on above: Result Comment: mL/m in/1.73m2 CKD-EPI Creatinine Equation (2020) Performed By: #### L 500.4100, L100.0100, L500.4050, L506.1001, L501.9520 #### [facility] [address] [place], [address] Globulin (S) [Mass/Vol] 3.0 g/dL Normal 2.2-4.2 [facility] Comment on above: Performed By: #### L 500.4100, L100.0100, L500.4050, L506.1001, L501.9520 #### [facility] [address] [place], [address] Glucose [Mass/Vol] 106 mg/dL High 70-99 [facility] Comment on above: Performed By: #### L 500.4100, L100.0100, L500.4050, L506.1001, L501.9520 #### [facility] [address] [place], [address] Potassium [Moles/Vol] 4.9 mmol/L Normal 3.3-5.1 [facility] Comment on above: Performed By: #### L 500.4100, L100.0100, L500.4050, L506.1001, L501.9520 #### [facility] [address] [place], [address] Sodium [Moles/Vol] 137 mmol/L Normal 133-145 [facility] Comment on above: Performed By: #### L 500.4100, L100.0100, L500.4050, L506.1001, L501.9520 #### [facility] [address] [place], [address] T PROT 6.9 g/dL Normal 5.9-8.4 [facility] Comment on above: Performed By: #### L 500.4100, L100.0100, L500.4050, L506.1001, L501.9520 #### [facility] [address] [place], [address] Urea nitrogen [Mass/Vol] 20 mg/dL High 4-19 [facility] Comment on above: Performed By: #### L 500.4100, L100.0100, L500.4050, L506.1001, L501.9520 #### [facility] [address] [place], [address] Eosinophil percentageOrdered By: Nohemy Pennington on 07-13-2024 Eosinophils/100 WBC (Bld) 4.3 % 0-5 [facility] Erythrocyte distribution wid th (RBC) [Ratio]Ordered By: Nohemy Pennington on 07-13-2024 Erythrocyte distribution width (RBC) [Entitic vol] 47.8 fL High 35.1-43.9 [facility] Erythrocyte distribution wid th ratioOrdered By: Nohemy Pennington on 07-13-2024 Erythrocyte distribution width (RBC) [Ratio] 14.8 % High 11.6-14.6 [facility] Erythrocyte distribution wid th standard deviationOrdered By: Nohemy Pennington on 07-13-2024 Erythrocyte distribution width (RBC) [Ratio] 47.8 fl High 35.1-43.9 [facility] GFR/1.73 sq M.predicted jade g non-blacks MDRD (S/P/Bld) [Vol rate/Area]Ordered By: Nohemy Pennington on 07-13-2024 Estimated GFR (MDRD) Non-Af Amer 38 Low >60 [facility] Comment on above: mL/min/1.73m2 CKD-EP I Creatinine Equation (2020) Glomerular filtration rate ( GFR) estimation/1.73 sq m using serum, plasma, or whole bOrdered By: Nohemy Pennington on 07-13-2024 GFR/1.73 sq M.predicted among non-blacks MDRD (S/P/Bld) [Vol rate/Area] 38 mL/min/{1.73_m2} Low >60 [facility] Comment on above: mL/min/1.73m2 CKD-EP I Creatinine Equation (2020) Hematocrit Auto (Bld) [Volum e fraction]Ordered By: Nohemy Pennington on 07-13-2024 Hematocrit (Bld) [Volume fraction] 39.6 % Low 40-54 [facility] Hemoglobin measurementOrdere d By: Nohemy Pennington on 07-13-2024 Hemoglobin (Bld) [Mass/Vol] 12.6 g/dL Low 13.0-16.5 [facility] Immature granulocytes/100 WB C Auto (Bld)Ordered By: Nohemy Pennington on 07-13-2024 Immature granulocytes/100 WBC (Bld) 0.400 % 0.0-0.9 [facility] Comment on above: IG% - Immature Granu locytes (promyelocytes, myelocytes and metamyelocytes) > 1% indicates that a LEFT SHIFT is Present. LDL calc ser/plasOrdered By: Nohemy Pennington on 07-13-2024 Cholesterol in LDL [Mass/Vol] 121 mg/dL [facility] Comment on above: Mzfbqhmiqo=926-810 m g/dL & Higher Bspc=877 mg/dL or greater LDL Cholesterol, Calculated 121 mg/dL [facility] Comment on above: Gglqhtaugt=438-451 m g/dL & Higher Fxta=581 mg/dL or greater Laboratory - Chemistry and C hemistry - challengeOrdered By: Nohemy Pennington on 07-13-2024 AST [Catalytic activity/Vol] 18 U/L <38 [facility] Lipid Profileon 07-13-2024 CHOL:HDL 3.84 Normal [facility] Comment on above: Performed By: #### L 500.4100, L100.0100, L500.4050, L506.1001, L501.9520 #### [facility] [address] [place], [address] Cholesterol [Mass/Vol] 191 mg/dL Normal <=200 [facility] Comment on above: Result Comment: Chol esterol level, Desirable <200 mg/dL Borderline high cholesterol 200-239 mg/dL High cholesterol >=240 mg/dL Recommendations of the NCEP Adult Treatment Panel for the following risk-cutoff thresholds for the [place] population. Performed By: #### L 500.4100, L100.0100, L500.4050, L506.1001, L501.9520 #### [facility] [address] [place], [address] Cholesterol in HDL [Mass/Vol] 50 mg/dL Normal [facility] Comment on above: Result Comment: Lissette onal Cholesterol Education Program (NCEP) guidelines: <40 mg/dL: Low HDL-cholesterol (major risk factor for CHD) >= 60 mg/dL: High HDL-cholesterol (negative risk factor for CHD) HDL-cholesterol is affected by a number of factors, e.g. smoking, exercise, hormones, sex and age. Performed By: #### L 500.4100, L100.0100, L500.4050, L506.1001, L501.9520 #### [facility] [address] [place], [address] Cholesterol in LDL [Mass/Vol] 121 mg/dL Normal [facility] Comment on above: Result Comment: Bord ouapqe=556-859 mg/dL Higher Rtkw=672 mg/dL or greater Performed By: #### L 500.4100, L100.0100, L500.4050, L506.1001, L501.9520 #### [facility] [address] [place], [address] Cholesterol in VLDL [Mass/Vol] 20 mg/dL Normal 5-40 [facility] Comment on above: Performed By: #### L 500.4100, L100.0100, L500.4050, L506.1001, L501.9520 #### [facility] [address] [place], [address] Triglyceride [Mass/Vol] 100 mg/dL Normal [facility] Comment on above: Result Comment: The drugs N-Acetylcysteine and Metamizole may falsely depress this assay. Normal range: <150 mg/dL Borderline High: 150-199 mg/dL High: 200-499 mg/dL Very High: >500 mg/dL Performed By: #### L 500.4100, L100.0100, L500.4050, L506.1001, L501.9520 #### [facility] [address] [place], [address] Lymphocytes Auto (Unsp spec) [#/Vol]Ordered By: Nohemy Pennington on 07-13-2024 Lymphocytes (Bld) [#/Vol] 1.26 10*3/uL 0.83-4.51 [facility] Lymphocytes/100 WBC Auto (Un sp spec)Ordered By: Nohemy Pennington on 07-13-2024 Lymphocytes/100 WBC (Bld) 16.4 % Low 19-41 [facility] MCV (mean corpuscular volume ) determinationOrdered By: Nohemy Pennington on 07-13-2024 MCV (RBC) [Entitic vol] 88.4 fL 80-94 [facility] Mean corpuscular hemoglobin (MCH) determinationOrdered By: Nohemy Pennington on 07-13-2024 MCH (RBC) [Entitic mass] 28.1 pg 27.0-32.0 [facility] Mean corpuscular hemoglobin concentration (MCHC) determinationOrdered By: Nohemy Pennington on 07-13-2024 MCHC (RBC) [Mass/Vol] 31.8 g/dL Low 32-36 [facility] Mean platelet volume determi nationOrdered By: Nohemy Pennington on 07-13-2024 Platelet mean volume (Bld) [Entitic vol] 9.9 fL 6.2-12.0 [facility] Monocyte percentageOrdered B y: Nohemy Pennington on 07-13-2024 Monocytes/100 WBC (Bld) 8.5 % 0-10 [facility] Neutrophil percentageOrdered By: Nohemy Pennington on 07-13-2024 Neutrophils/100 WBC (Bld) 69.6 % 47-70 [facility] Nucleated red blood cell per centageOrdered By: Nohemy Pennington on 07-13-2024 Nucleated RBC/100 WBC (Bld) [Ratio] 0 % 0-5 [facility] Office Visit Reporton 2024 Office Visit Report [facility] [address] [place] [address] OFFICE VISIT Date of Service: 07/13/24 MR#: [id number] Acct: [id number] Patient: AGATHA HEATH Rep #: [id number] : 1940 Provider: JAMAL NURSE Age/Sex: 84/M Location: [facility] [place] Status: Signed Intake Vital Signs 07/12/24 14:33 [...] Visit Reasons: BP CHECK Chief Complaint: bp Offc Spec Required: No Is patient in pain?: No [...] Date (if applicable) CC: BIM NURSE Normal [facility] Platelet countOrdered By: Simone Pennington on 07-13-2024 Platelets (Bld) [#/Vol] 320 10*3/uL 150-450 [facility] Potassium (Unsp spec) [Mass/ Vol]Ordered By: Nohemy Pennington on 07-13-2024 Potassium [Moles/Vol] 4.9 mmol/L 3.3-5.1 [facility] Potassium measurement (mass/ volume)Ordered By: Nohemy Pennington on 07-13-2024 Potassium (Unsp spec) [Mass/Vol] 4.9 mmol/L 3.3-5.1 [facility] RBC Auto (Bld) [#/Vol]Ordere d By: Nohemy Pennington on 07-13-2024 RBC (Bld) [#/Vol] 4.48 10*6/uL Low 4.6-6.2 [facility] Screening total cholesterol/ high density lipoprotein (HDL) cholesterol ratioOrdered By: Nohemy Pennington on 07-13-2024 Cholesterol.total/Choles terol in HDL [Mass ratio] 3.84 {ratio} [facility] Serum creatinine measurement (mass/volume)Ordered By: Nohemy Pennington on 07-13-2024 Creatinine [Mass/Vol] 1.74 mg/dL High 0.70-1.20 [facility] Serum globulin measurementOr dered By: Nohemy Pennington on 07-13-2024 Globulin (S) [Mass/Vol] 3.0 g/dL 2.2-4.2 [facility] Serum glucose measurement (m ass/volume)Ordered By: Nohemy Pennington on 07-13-2024 Glucose [Mass/Vol] 106 mg/dL High 70-99 [facility] Serum or plasma alanine regalado otransferase (ALT) measurementOrdered By: Nohemy Pennington on 07-13-2024 ALT [Catalytic activity/Vol] 16 U/L <47 [facility] Serum or plasma albumin anant urement (mass/volume)Ordered By: Nohemy Pennington on 07-13-2024 Albumin [Mass/Vol] 3.9 g/dL 3.4-4.8 [facility] Serum or plasma albumin/glob ulin mass ratioOrdered By: Nohemy Pennington on 07-13-2024 Albumin/Globulin [Mass ratio] 1.3 {ratio} 0.9-2.4 [facility] Serum or plasma alkaline ambreen sphatase measurementOrdered By: Nohemy Pennington on 07-13-2024 ALP [Catalytic activity/Vol] 112 U/L 40-129 [facility] Serum or plasma calcium anant urement (mass/volume)Ordered By: Nohemy Pennington on 07-13-2024 Calcium [Mass/Vol] 9.7 mg/dL 7.6-11.0 [facility] Serum or plasma cholesterol in HDL measurement (mass/volume)Ordered By: Nohemy Pennington on 07-13-2024 Cholesterol in HDL [Mass/Vol] 50 mg/dL >40 [facility] Comment on above: National Cholesterol Education Program (NCEP) guidelines:<40 mg/dL: Low HDL-cholesterol (major risk factor for CHD)>= 60 mg/dL: High HDL-cholesterol (negative risk factor for CHD)HDL-cholesterol is affected by a number of factors, e.g. smoking, exercise, hormones, sex and age. Serum or plasma cholesterol measurement (mass/volume)Ordered By: Nohemy Pennington on 07-13-2024 Cholesterol [Mass/Vol] 191 mg/dL <201 [facility] Comment on above: Cholesterol level, D esirable <200 mg/dLBorderline high cholesterol 200-239 mg/dLHigh cholesterol >=240 mg/dLRecommendations of the NCEP Adult Treatment Panel for the following risk-cutoff thresholds for the [place] population. Serum or plasma urea nitroge n measurement (mass/volume)Ordered By: Nohemy Pennington on 07-13-2024 Urea nitrogen [Mass/Vol] 20 mg/dL High 4-19 [facility] Sodium levelOrdered By: Stephanie Pennington on 07-13-2024 Sodium [Moles/Vol] 137 mmol/L 133-145 [facility] TSH DL <= 0.005 mIU/L QnOrde red By: Nohemy Pennington on 07-13-2024 Thyroid Stimulating Hormone (TSH) 6.300 uIU/mL High 0.300-4.200 [facility] TSH Qn 6.300 uIU/mL High 0.300-4.200 [facility] Thyroid Stim Hormone (TSH)on 07-13-2024 TSH 6.300 uIU/mL High 0.300-4.200 [facility] Comment on above: Performed By: #### L 500.4100, L100.0100, L500.4050, L506.1001, L501.9520 #### [facility] [address] [place], [place], [id number] Total proteinOrdered By: Willie Pennington on 07-13-2024 Protein [Mass/Vol] 6.9 g/dL 5.9-8.4 [facility] Triglycerides measurementOrd ered By: Nohemy Pennington on 07-13-2024 Triglyceride [Mass/Vol] 100 mg/dL <199 [facility] Comment on above: The drugs N-Acetylcy steine and Metamizole may falsely depress this assay. Normal range: <150 mg/dLBorderline High: 150-199 mg/dLHigh: 200-499 mg/dLVery High: >500 mg/dL Vitamin D, 25-hydroxyOrdered By: Nohemy Pennington on 07-13-2024 Vitamin D 25-Hydroxy 53.5 ng/mL 30-100 [facility] Comment on above: Vitamin D StatusDefi ciency: <20 ng/mL (50nmol/L)Insufficiency: 20-30 ng/mL (50-75 nmol/L)Sufficiency: 30-100 ng/mL (75-250 nmol/L)Toxicity: >100 ng/mL (>250 nmol/L) Vitamin D,25 Hydroxyon 07-13 Vitamin D 25-OH 53.5 ng/mL Normal 30-100 [facility] Comment on above: Result Comment: Eufemia min D Status Deficiency: <20 ng/mL (50nmol/L) Insufficiency: 20-30 ng/mL (50-75 nmol/L) Sufficiency: 30-100 ng/mL (75-250 nmol/L) Toxicity: >100 ng/mL (>250 nmol/L) Performed By: #### L 500.4100, L100.0100, L500.4050, L506.1001, L501.9520 ####[facility] [address] [place], [address] White blood cell (WBC) count Ordered By: Nohemy Pennington on 07-13-2024 WBC (Bld) [#/Vol] 7.7 10*3/uL 4.4-11.0 [facility] Internal Medicine Office Vis ronny 07-11-2024 Internal Medicine Office Visit [facility] [address] [place] [address] [place] [address] OFFICE VISIT Date of Service: 07/12/24 MR#: [id number] Acct: [id number] Name: AGATHA HEATH Rep #: [id number] : 1940 Provider: Dr. Nohemy garcia MD Age/Sex: 84/M Location: [facility] [place] Status: Signed Intake Vital Signs 07/12/24 14:33 07/12/24 16:51 Height 5 ft 7 in Weight: 181 lb BMI 28.3 BP 154/86 H 152/86 H Blood Pressure Location Lt brachial Position Sitting Respiration 16 Pulse 64 Pulse Source Monitor Temp 95.2 F L Temp Source Temporal Pulse Oximetry (%) 96 Oxygen Delivery Method room air Intake Visit Reasons: [employer]. EST CARE - PPW SENT Offc Spec Required: No Accompanied by: Self Is patient [...] none current occupational status: retired current occupation: [employer] Smoking Status: Former smoker alcohol intake: never [...] Salvador/Lymp Hematologic/ (more content not included)... Normal [facility] 05-04-2024 [facility] Telephone ([facility]OBBY) AGATHA HEATH ([id number]) 1940 M Date Time Provider Department 05/04/24 [...] Date Reviewed: 05/25/2018 Reviewed by: Kamilla Mars ([facility])MARY ANNE - Fully Assessed Reason for Visit: [...] Status:Closed by PAULA CASTELLANO on 05/06/24 Normal [facility] Vital Signs Date Time Vital Sign Value Performing Clinician Avila durant 11-10-2024 10:49-0400 Diastolic blood pressure 86 mm[Hg] Dr. Nohemy Pennington MD Work Phone: [facility] 11-10-2024 10:49-0400 Systolic blood pressure 176 mm[Hg] Dr. Nohemy Pennington MD Work Phone: [facility] 11-10-2024 10:05-0400 Body height 170.[address] Nohemy Pennington MD Work Phone: [facility] 11-10-2024 10:05-0400 Body mass index (BMI) [Ratio] 28.1 kg/m2 Dr. Nohemy Pennington MD Work Phone: [facility] 11-10-2024 10:05-0400 Body temperature 96.9 [degF] Dr. Nohemy Pennington MD Work Phone: [facility] 11-10-2024 10:05-0400 Body weight 81.[address] Nohemy Pennington MD Work Phone: [facility] 11-10-2024 10:05-0400 Heart rate 66 /min Dr. Nohemy Pennington MD Work Phone: [facility] 11-10-2024 10:05-0400 Respiratory rate 16 /min Dr. Nohemy Pennington MD Work Phone: [facility] 11-10-2024 10:05-0400 SaO2% (BldA) [Mass fraction] 98 % Dr. Nohemy Pennington MD Work Phone: [facility] 10-05-2024 11:37-0400 Body height 170.[address] Nohemy Pennington MD Work Phone: [facility] 10-05-2024 11:37-0400 Body mass index (BMI) [Ratio] 29 kg/m2 Dr. Nohemy Pennington MD Work Phone: [facility] 10-05-2024 11:37-0400 Body temperature 98.6 [degF] Dr. Nohemy Pennington MD Work Phone: [facility] 10-05-2024 11:37-0400 Body weight 83.[address] Nohemy Pennington MD Work Phone: [facility] 10-05-2024 11:37-0400 Diastolic blood pressure 80 mm[Hg] Dr. Nohemy Pennington MD Work Phone: [facility] 10-05-2024 11:37-0400 Heart rate 70 /min Dr. Nohemy Pennington MD Work Phone: [facility] 10-05-2024 11:37-0400 Respiratory rate 16 /min Dr. Nohemy Pennington MD Work Phone: [facility] 10-05-2024 11:37-0400 SaO2% (BldA) [Mass fraction] 97 % Dr. Nohemy Pennington MD Work Phone: [facility] 10-05-2024 11:37-0400 Systolic blood pressure 170 mm[Hg] Dr. Nohemy Pennington MD Work Phone: [facility] 09-27-2024 08:47-0400 Body height 170.[address] Nohemy Pennington MD Work Phone: [facility] 09-27-2024 08:47-0400 Body mass index (BMI) [Ratio] 28.1 kg/m2 Dr. Nohemy Pennington MD Work Phone: [facility] 09-27-2024 08:47-0400 Body temperature 97.6 [degF] Dr. Nohemy Pennington MD Work Phone: [facility] 09-27-2024 08:47-0400 Body weight 81.[address] Nohemy Pennington MD Work Phone: [facility] 09-27-2024 08:47-0400 Diastolic blood pressure 60 mm[Hg] Dr. Nohemy Pennington MD Work Phone: [facility] 09-27-2024 08:47-0400 Heart rate 70 /min Dr. Nohemy Pennington MD Work Phone: [facility] 09-27-2024 08:47-0400 Respiratory rate 16 /min Dr. Nohemy Pennington MD Work Phone: [facility] 09-27-2024 08:47-0400 SaO2% (BldA) [Mass fraction] 99 % Dr. Nohemy Pennington MD Work Phone: [facility] 09-27-2024 08:47-0400 Systolic blood pressure 140 mm[Hg] Dr. Nohemy Pennington MD Work Phone: [facility] 08-11-2024 11:22-0400 Diastolic blood pressure 80 mm[Hg] Dr. Nohemy Pennington MD Work Phone: [facility] 08-11-2024 11:22-0400 Systolic blood pressure 178 mm[Hg] Dr. Nohemy Pennington MD Work Phone: [facility] 08-11-2024 10:02-0400 Body height 170.[address] Nohemy Pennington MD Work Phone: [facility] 08-11-2024 10:02-0400 Body mass index (BMI) [Ratio] 28 kg/m2 Dr. Nohemy Pennington MD Work Phone: [facility] 08-11-2024 10:02-0400 Body temperature 97.1 [degF] Dr. Nohemy Pennington MD Work Phone: [facility] 08-11-2024 10:02-0400 Body weight 81.[address] Nohemy Pennington MD Work Phone: [facility] 08-11-2024 10:02-0400 Heart rate 58 /min Dr. Nohemy Pennington MD Work Phone: [facility] 08-11-2024 10:02-0400 Respiratory rate 16 /min Dr. Nohemy Pennington MD Work Phone: [facility] 08-11-2024 10:02-0400 SaO2% (BldA) [Mass fraction] 99 % Dr. Nohemy Pennington MD Work Phone: [facility] 07-13-2024 08:09-0400 Diastolic blood pressure 82 mm[Hg] Dr. Nohemy Pennington MD Work Phone: [facility] 07-13-2024 08:09-0400 Systolic blood pressure 178 mm[Hg] Dr. Nohemy Pennington MD Work Phone: [facility] 07-12-2024 16:51-0400 Diastolic blood pressure 86 mm[Hg] Dr. Nohemy Pennington MD Work Phone: [facility] 07-12-2024 16:51-0400 Systolic blood pressure 152 mm[Hg] Dr. Nohemy Pennington MD Work Phone: [facility] 07-12-2024 14:33-0400 Body height 170.[address] Nohemy Pennington MD Work Phone: [facility] 07-12-2024 14:33-0400 Body mass index (BMI) [Ratio] 28.3 kg/m2 Dr. Nohemy Pennington MD Work Phone: [facility] 07-12-2024 14:33-0400 Body temperature 95.2 [degF] Dr. Nohemy Pennington MD Work Phone: [facility] 07-12-2024 14:33-0400 Body weight 82.[address] Nohemy Pennington MD Work Phone: [facility] 07-12-2024 14:33-0400 Heart rate 64 /min Dr. Nohemy Pennington MD Work Phone: [facility] 07-12-2024 14:33-0400 Respiratory rate 16 /min Dr. Nohemy Pennington MD Work Phone: [facility] 07-12-2024 14:33-0400 SaO2% (BldA) [Mass fraction] 96 % Dr. Nohemy Pennington MD Work Phone: [facility] Encounters Encounter Date Encounter Type Care Provider Facility Start: 11-10-2024 ambulatory Nohemy Pennington Facility :[facility] Start: 11-10-2024 End: 11-10-[address] Nohemy Pennington MD -[facility] Work Phone: Start: 11-10-2024 End: 11-10-[address] Nohemy Pennington MD Work Phone: -[facility] Start: 10-26-2024 End: 10-26-2024 ambulatory [facility] Start: 10-05-2024 End: 10-05-[address] Nohemy Pennington MD -[facility] Work Phone: Start: 10-05-2024 End: 10-05-[address] Nohemy Pennington MD Work Phone: -[facility] Start: 09-27-2024 End: 09-27-2024 Patient encounter procedure Roberto Carlos Tobias [place] -[facility] Work Phone: Start: 09-27-2024 End: 09-27-[address] Nohemy Pennington MD Work Phone: [facility] Work Phone: Start: 08-11-2024 End: 08-11-[address] Nohemy Pennington MD -[facility] Work Phone: Start: 08-11-2024 End: 08-11-[address] Nohemy Pennington MD Work Phone: [facility] Work Phone: Start: 08-11-2024 End: 08-11-2024 ambulatory Nohemy Pennington Facility:[facility] Start: 07-26-2024 ambulatory Nohemy [place] Facility :[facility] Start: 07-13-2024 End: 07-13-2024 Patient encounter procedure BIM NURSE -[facility] Work Phone: Start: 07-13-2024 End: 07-13-[address] Nohemy [place] MD Work Phone: [facility] Work Phone: Start: 07-12-2024 End: 07-13-2024 ambulatory Nohemy [place] Facility:[facility] Start: 07-12-2024 End: 07-12-[address] Nohemy Pennington MD -[facility] Work Phone: Start: 05-04-2024 End: 05-06-2024 Telephone encounter Ayaz Ferraro MD Work Phone: [facility] [place] Comment on above: New Patient Procedures Date Procedure Procedure Detail Performing Clinician Start: 07-13-2024 Vitamin D, 25-hydrox y measurement Dr. Nohemy [place] MD Work Phone: Comment on above: Vitamin D StatusDefi ciency: <20 ng/mL (50nmol/L)Insufficiency: 20-30 ng/mL (50-75 nmol/L)Sufficiency: 30-100 ng/mL (75-250 nmol/L)Toxicity: >100 ng/mL (>250 nmol/L) Plan of Treatment Date Care Activity Detail Author Start: 04-06-2024 Advance Directive Discussion Advance Directive Discussion [facility] Start: 12-06-2023 Covid-19 Vaccine ( season) Covid-19 Vaccine ( season) [facility] Start: 12-06-2023 Influenza vaccination Influenza Vacc ine (#1) [facility] Start: 05-20-2020 Diabetes Screening Diabetes Screenin g [facility] Start: 2013 RSV Vaccine (1 - 1-d ose 75+ series) RSV Vaccine (1 - 1-dose 75+ series) [facility] Start: 03-05-2005 Urine microalbumin profile DTaP,Tdap,Td Vaccine (1 - Tdap) [facility] Start: 01-18-2005 Pneumococcal Vaccine : 50+ (2 of 2 - PCV) Pneumococcal Vaccine: 50+ (2 of 2 - PCV) [facility] Start: 1988 Shingrix Vaccine (1 of 2) Shingrix V accine (1 of 2) [facility] Start: 1956 Anxiety Screening Anxiety Screening [facility] Start: 1956 Depression Screening Depression Scre ening [facility] Immunizations Immunization Date Immunization Notes Care Provider Fa cility 03-14-2024 Covid (Spikevax) Dr. Nohemy Pennington MD Work Phone: [facility] 03-14-2024 influenza, high dose seasonal, preservative-free Dr. Nohemy Pennington MD Work Phone: [facility] 04-03-[address] Nohemy Pennington MD Work Phone: [facility] 01-18-2023 Covid (Spikevax) Dr. Nohemy Pennington MD Work Phone: [facility] 01-18-[address] Nohemy Pennington MD Work Phone: [facility] 01-02-2023 Influenza High-Dose Quadrivalent Dr. Nohemy Pennington MD Work Phone: [facility] 01-28-2022 Covid Moderna Bivale nt Booster Dr. Nohemy Pennington MD Work Phone: [facility] 01-28-2022 Influenza High-Dose Quadrivalent Dr. Nohemy Pennington MD Work Phone: [facility] 07-23-2021 Covid (Moderna) Dr. Nohemy rainey MD Work Phone: [facility] 01-31-2021 Covid (Moderna) Dr. Nohemy rainey MD Work Phone: [facility] 01-14-2021 Influenza High-Dose Quadrivalent Dr. Nohemy Pen[place] MD Work Phone: [facility] 05-21-2020 Covid (Moderna) Dr. Nohemy rainey MD Work Phone: [facility] 04-24-2020 Covid (Moderna) Dr. Nohemy rainey MD Work Phone: [facility] 01-04-2020 influenza, high dose seasonal, preservative-free Ayaz Ferraro MD Work Phone: [facility] 01-04-2020 influenza, injectabl e, quadrivalent, preservative free Dr. Nohemy Pen[place] MD Work Phone: [facility] 01-04-2020 influenza virus vacc ine, unspecified formulation Ayaz Ferraro MD Work Phone: [facility] 06-19-2019 tetanus toxoid, redu terrance diphtheria toxoid, and acellular pertussis vaccine, adsorbed Dr. Nohemy Penning[place] MD Work Phone: [facility] 01-06-2019 influenza, high dose seasonal, preservative-free Ayaz Ferraro MD Work Phone: [facility] 01-14-2018 influenza, high dose seasonal, preservative-free Dr. Nohemy Pennington MD Work Phone: [facility] 01-28-2017 influenza, high dose seasonal, preservative-free Ayaz Ferraro MD Work Phone: [facility] 01-11-2010 influenza, injectabl e, quadrivalent, preservative free Dr. Nohemy Pen[place] MD Work Phone: [facility] 03-20-2009 novel influenza-H1N1 -09, preservative-free, injectable Dr. Nohemy Pennington MD Work Phone: [facility] 01-01-2009 influenza, injectabl e, quadrivalent, preservative free Dr. Nohemy Penning[place] MD Work Phone: [facility] 03-04-2005 tetanus and diphther ia toxoids, adsorbed, preservative free, for adult use (2 Lf of tetanus toxoid and 2 Lf of diphtheria toxoid) Ayaz Ferraro MD Work Phone: [facility] 01-19-2004 pneumococcal polysaccharide vaccine, 23 valent Ayaz Ferraro MD Work Phone: [facility] Payers Date Payer Category Payer Self-pay 2024 Self-pay [id number] 2018 Private Health Insurance [employer] PPO [id number] 2018-Present [phone] [address] [place] [address] PPO [id number] 2003 Medicare MEDICARE MEDICAR E A AND B [id number] 2003-Present [phone] [address] [address] [place] [address] Medicare [id number] 2003 Medicare [id number] Unknown [id number] Unknown [id number] Unknown [id number] Unknown [id number] Unknown [id number] Unknown [id number] Unknown [id number] Unknown [id number] Unknown [id number] Unknown [id number] Social History Date Type Detail Facility Start: 05-25-2018 [facility] Start: 05-25-2018 Tobacco use and exposure Smokeless tobacco non-user [facility] Start: 11-20-2021 Alcoholic beverage intake Current non-drinker of alcohol (finding) [facility] Start: 05-25-2018 End: 03-13-2020 History of Social function [facility] Start: 05-25-2018 End: 03-13-2020 Tobacco use panel [facility] National Score (1-10 0), lower number is lower risk Not on file [facility] Start: 1940 Sex assigned at Not on file [facility] Start: 07-12-2024 [facility] Start: 07-15-2024 Sex Male (finding) [facility] Start: 1940 Sex Assigned At Male [facility] Clinical Notes 05-04-2024 to 07-13-2024 Note Date [...] venous thrombosis) noneactive November 10, 2024 9:57am [facility] Work Phone: 1(274) 170-406704-08-2025 Evaluation note* Diagnosis Onset Date Resolution Status Admit Date Essential hypertension acute Ap ril 2024 2:18pm Establishing care with new doctor, encounter for noneactive July 12, 2024 2:18pm Grief noneactive July 12 2:18pm Heart murmur noneactive July 12, 2 025 2:18pm Essential hypertension acute Ap ril 2024 7:53am [facility] Work Phone: 1(629) 271-648204-08-2025 Evaluation note* Diagnosis Onset Date Resolution Status [...] 9:56am Elevated TSH noneactive August 11 9:56am [facility] Work Phone: 1(928) 172-947204-08-2025 Evaluation note* Diagnosis Onset Date Resolution Status [...] thrombosis) noneactive October 05, 2024 1 1:23am [facility] Work Phone: 1(847) 909-864301-31-2025 Telephone encounter Note* Telephone Encounter - Paula Castellano MA - 05/06/2024 2:08 PM EST Katherine reached out and patient has found another physician. He was counsin. Paula Castellano MA [facility]01-31-2025 Miscellaneous Notes* Telephone Encounter - Paula Castellano MA - 05/06/2024 2:08 PM EST Katherine reached out and patient has found another physician. He was counsin. Paula Castellano MA * Telephone Encounter - Paula [...] in chart is accurate. [facility] Telephone encounter Note * Telephone Encounter - Paula Castellano MA - 05/04/2024 4:41 PM EST Did reach out to Katherine via my chart. Paula Castellano MA [facility]01-29-2025 Telephone encounter Note* Telephone Encounter - Ayaz Ferraro MD - 05/04/2024 3:58 PM EST Dianna find out from Jade Stanley: how she is related. She has him listed in her chart but just as a relative. [facility] Work Phone: 1(197) 995-572001-29-2025 Telephone encounter Note* Telephone Encounter - Paula Castellano MA - 05/04/2024 2:[address] Ferraro Only excepts new patient's - immediate close family members only. If he sees / Child/children Grandparents Who has patient been seeing since 2019? Paula Castellano MA' [facility]01-29-2025 Telephone encounter Note* Telephone Encounter - [...] number for patient in chart is accurate. [facility])No reason for referral information availableWOur [facility] Work Phone: Summary Purpose Family History No [...] Reason for Visit Chief Complaint Admit Date E[employer]IPMENT [employer]. 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 July 12, [...] or prosecute any alcohol or drug abuse patient.[facility] Reason for Visit (unrecogniz ed section and content) Reason Comments New Patient (unrecognized sect ion and content) No Status Records FoundNo Status Records FoundNo Status Records Found INFORMATION SOURCE (unrecogn ized section and content) DATE CREATED AUTHOR 05/08/2024 [facility] DATE CREATED AUTHOR AUTHOR'S ORGANIZ ATION 10/27/2024 [facility] DATE CREATED AUTHOR AUTHOR'S ORGANIZ ATION 11/12/2024 [facility] Care Teams (unrecognized sec tion and [...] Status: Inactive Member Role Status Dates Dr. Noehmy Pennington MD Primary Care Provider Active Start: [...] Inactive Member Role/Relationship Status Dates Dr. Nohemy Penningtno MD Primary Care Provider Active Start: August [...] Status: Inactive Member Role/Relationship Status Dates Dr. Noehmy Pennington MD Primary Care Provider Active Start: [...] BE BASED ON THE PRIMARY CLINICAL RECORDS. [facility] [employer] [facility]. provides no warranty or guarantee of the accuracy or completeness of information in this document.
== END | disposition home or self-care (01) ==
LOC: MTLAB 10:55
PROVIDERS: PCP Internal Medicine; Referring Provider Physician Assistant; Visit Provider Physician Assistant
DX: L30.9 Dermatitis, unspecified (principal)
CPT/HCPCS: 36415

== ENCOUNTER → 2025-02-14 | Outpatient (CLI) | payer MEDICARE, OTHER, SELFPAY ==
--- OUTSIDE RECORDS SUMMARY | 2025-02-14 13:04 | XMS RPT_ITS | CCD ---
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 Normal [facility] Absolute lymphocyte countOrd ered By: Nohemy Pennington on 07-13-2024 Lymphocytes Auto (Unsp spec) [#/Vol] 1.26 10*3/uL 0.83-4.51 [facility] Absolute neutrophil countOrd ered By: Nohemy Pennington on 07-13-2024 Neutrophils (Bld) [#/Vol] 5.4 10*3/uL 2.0-7.7 [facility] Anion gap in Serum or Plasma Ordered By: Nohemy Pennington on 07-13-2024 Anion gap [Moles/Vol] 10 mmol/L 5-15 [facility] Automated lymphocyte count a s percentage of total leukocytesOrdered By: Nohemy Pennington on 07-13-2024 Lymphocytes/100 WBC Auto (Unsp spec) 16.4 % Low 19-41 [facility] BUN/creatinine ratioOrdered By: Nohemy Pennington on 07-13-2024 Urea nitrogen/Creatinine [Mass ratio] 11.7 mg/mg 10-20 [facility] Basophil percentageOrdered B y: Nohemy Pennington on 07-13-2024 Basophils/100 WBC (Bld) 0.8 % 0-1 [facility] Bilirubin, totalOrdered By: Nohemy Pennington on 07-13-2024 Bilirubin [Mass/Vol] 0.43 mg/dL 0.00-1.30 [facility] CBC W/Diff, Automatedon 04-0 Absolute Lymph 1.26 X10 3/uL Normal 0.83-4.51 [facility] Comment on above: Performed By: #### L 501.9520, L500.4100, L100.0100, L500.4050, L506.1001 #### [facility] [address] [place], [address] Absolute Neut 5.4 X10 3/uL Normal 2.0-7.7 [facility] Comment on above: Performed By: #### L 501.9520, L500.4100, L100.0100, L500.4050, L506.1001 #### [facility] [address] [place], [address] Basophils/100 WBC (Bld) 0.8 % Normal 0-1 [facility] Comment on above: Performed By: #### L 501.9520, L500.4100, L100.0100, L500.4050, L506.1001 #### [facility] [address] [place], [address] Eosinophils/100 WBC (Bld) 4.3 % Normal 0-5 [facility] Comment on above: Performed By: #### L 501.9520, L500.4100, L100.0100, L500.4050, L506.1001 #### [facility] [address] [place], [address] Erythrocyte distribution width (RBC) [Ratio] 14.8 % High 11.6-14.6 [facility] Comment on above: Performed By: #### L 501.9520, L500.4100, L100.0100, L500.4050, L506.1001 #### [facility] [address] [place], [address] Hematocrit (Bld) [Volume fraction] 39.6 % Low 40-54 [facility] Comment on above: Performed By: #### L 501.9520, L500.4100, L100.0100, L500.4050, L506.1001 #### [facility] [address] [place], [address] Hemoglobin (Bld) [Mass/Vol] 12.6 g/dL Low 13.0-16.5 [facility] Comment on above: Performed By: #### L 501.9520, L500.4100, L100.0100, L500.4050, L506.1001 #### [facility] [address] [place], [address] IG% 0.400 Normal 0.0-0.9 [facility] Comment on above: Result Comment: IG% - Immature Granulocytes (promyelocytes, myelocytes and metamyelocytes) > 1% indicates that a LEFT SHIFT is Present. Performed By: #### L 501.9520, L500.4100, L100.0100, L500.4050, L506.1001 #### [facility] [address] [place], [address] Lymphocytes/100 WBC (Bld) 16.4 % Low 19-41 [facility] Comment on above: Performed By: #### L 501.9520, L500.4100, L100.0100, L500.4050, L506.1001 #### [facility] [address] [place], [address] MCH (RBC) [Entitic mass] 28.1 pg Normal 27.0-32.0 [facility] Comment on above: Performed By: #### L 501.9520, L500.4100, L100.0100, L500.4050, L506.1001 #### [facility] [address] [place], [address] MCHC (RBC) [Mass/Vol] 31.8 g/dL Low 32-36 [facility] Comment on above: Performed By: #### L 501.9520, L500.4100, L100.0100, L500.4050, L506.1001 #### [facility] [address] [place], [address] MCV (RBC) [Entitic vol] 88.4 fL Normal 80-94 [facility] Comment on above: Performed By: #### L 501.9520, L500.4100, L100.0100, L500.4050, L506.1001 #### [facility] [address] [place], [address] Monocytes/100 WBC (Bld) 8.5 % Normal 0-10 [facility] Comment on above: Performed By: #### L 501.9520, L500.4100, L100.0100, L500.4050, L506.1001 #### [facility] [address] [place], [address] Neutrophils/100 WBC (Bld) 69.6 % Normal 47-70 [facility] Comment on above: Performed By: #### L 501.9520, L500.4100, L100.0100, L500.4050, L506.1001 #### [facility] [address] [place], [address] Nucleated RBC (Bld) [#/Vol] 0 10*3/uL Normal 0-5 [facility] Comment on above: Performed By: #### L 501.9520, L500.4100, L100.0100, L500.4050, L506.1001 #### [facility] [address] [place], [address] Platelet mean volume (Bld) [Entitic vol] 9.9 fL Normal 6.2-12.0 [facility] Comment on above: Performed By: #### L 501.9520, L500.4100, L100.0100, L500.4050, L506.1001 #### [facility] [address] [place], [address] Platelets (Bld) [#/Vol] 320 10*3/uL Normal 150-450 [facility] Comment on above: Performed By: #### L 501.9520, L500.4100, L100.0100, L500.4050, L506.1001 #### [facility] [address] [place], [address] RBC (Bld) [#/Vol] 4.48 10*6/uL Low 4.6-6.2 [facility] Comment on above: Performed By: #### L 501.9520, L500.4100, L100.0100, L500.4050, L506.1001 #### [facility] [address] [place], [address] RDW SD 47.8 fl High 35.1-43.9 [facility] Comment on above: Performed By: #### L 501.9520, L500.4100, L100.0100, L500.4050, L506.1001 #### [facility] [address] [place], [address] WBC (Bld) [#/Vol] 7.7 10*3/uL Normal 4.4-11.0 [facility] Comment on above: Performed By: #### L 501.9520, L500.4100, L100.0100, L500.4050, L506.1001 #### [facility] [address] [place], [address] Calculated very low density lipoprotein (VLDL) cholesterol measurementOrdered By: Nohemy Pennington on 07-13-2024 Calculated very low density lipoprotein (VLDL) cholesterol measurement 20 mg/dL 5-40 [facility] VLDL Cholesterol 20 mg/dL 5-40 [facility] Carbon dioxide, total [Moles /volume] in Central venous bloodOrdered By: Nohemy Pennington on 07-13-2024 CO2 [Moles/Vol] 23.1 mmol/L 21.0-32.0 [facility] Chloride assayOrdered By: Simone Pennington on 07-13-2024 Chloride [Moles/Vol] 105 mmol/L 98-108 [facility] Comprehensive Metabolic Prof ilon 07-13-2024 Albumin [Mass/Vol] 3.9 g/dL Normal 3.4-4.8 [facility] Comment on above: Performed By: #### L 501.9520, L500.4100, L100.0100, L500.4050, L506.1001 #### [facility] [address] [place], [address] Albumin/Globulin [Mass ratio] 1.3 {ratio} Normal 0.9-2.4 [facility] Comment on above: Performed By: #### L 501.9520, L500.4100, L100.0100, L500.4050, L506.1001 #### [facility] [address] [place], [address] ALK PHOS 112 U/L Normal 40-129 [facility] Comment on above: Performed By: #### L 501.9520, L500.4100, L100.0100, L500.4050, L506.1001 #### [facility] [address] [place], [address] ALT [Catalytic activity/Vol] 16 U/L Normal <=46 [facility] Comment on above: Performed By: #### L 501.9520, L500.4100, L100.0100, L500.4050, L506.1001 #### [facility] [address] [place], [address] AST [Catalytic activity/Vol] 18 U/L Normal <=37 [facility] Comment on above: Performed By: #### L 501.9520, L500.4100, L100.0100, L500.4050, L506.1001 #### [facility] [address] [place], [address] Bilirubin [Mass/Vol] 0.43 mg/dL Normal 0.00-1.30 [facility] Comment on above: Performed By: #### L 501.9520, L500.4100, L100.0100, L500.4050, L506.1001 #### [facility] [address] [place], [address] BUN/CRE 11.7 RATIO Normal 10-20 [facility] Comment on above: Performed By: #### L 501.9520, L500.4100, L100.0100, L500.4050, L506.1001 #### [facility] [address] [place], [address] Calcium [Mass/Vol] 9.7 mg/dL Normal 7.6-11.0 [facility] Comment on above: Performed By: #### L 501.9520, L500.4100, L100.0100, L500.4050, L506.1001 #### [facility] [address] [place], [address] Chloride [Moles/Vol] 105 mmol/L Normal 98-108 [facility] Comment on above: Performed By: #### L 501.9520, L500.4100, L100.0100, L500.4050, L506.1001 #### [facility] [address] [place], [address] CO2 [Moles/Vol] 23.1 mmol/L Normal 21.0-32.0 [facility] Comment on above: Performed By: #### L 501.9520, L500.4100, L100.0100, L500.4050, L506.1001 #### [facility] [address] [place], [address] Creatinine [Mass/Vol] 1.74 mg/dL High 0.70-1.20 [facility] Comment on above: Performed By: #### L 501.9520, L500.4100, L100.0100, L500.4050, L506.1001 #### [facility] [address] [place], [address] GAP 10 Normal 5-15 [facility] Comment on above: Performed By: #### L 501.9520, L500.4100, L100.0100, L500.4050, L506.1001 #### [facility] [address] [place], [address] GFR/1.73 sq M.predicted among non-blacks MDRD (S/P/Bld) [Vol rate/Area] 38 mL/min/{1.73_m2} Low >60 [facility] Comment on above: Result Comment: mL/m in/1.73m2 CKD-EPI Creatinine Equation (2020) Performed By: #### L 501.9520, L500.4100, L100.0100, L500.4050, L506.1001 #### [facility] [address] [place], [address] Globulin (S) [Mass/Vol] 3.0 g/dL Normal 2.2-4.2 [facility] Comment on above: Performed By: #### L 501.9520, L500.4100, L100.0100, L500.4050, L506.1001 #### [facility] [address] [place], [address] Glucose [Mass/Vol] 106 mg/dL High 70-99 [facility] Comment on above: Performed By: #### L 501.9520, L500.4100, L100.0100, L500.4050, L506.1001 #### [facility] [address] [place], [address] Potassium [Moles/Vol] 4.9 mmol/L Normal 3.3-5.1 [facility] Comment on above: Performed By: #### L 501.9520, L500.4100, L100.0100, L500.4050, L506.1001 #### [facility] [address] [place], [address] Sodium [Moles/Vol] 137 mmol/L Normal 133-145 [facility] Comment on above: Performed By: #### L 501.9520, L500.4100, L100.0100, L500.4050, L506.1001 #### [facility] [address] [place], [address] T PROT 6.9 g/dL Normal 5.9-8.4 [facility] Comment on above: Performed By: #### L 501.9520, L500.4100, L100.0100, L500.4050, L506.1001 #### [facility] [address] [place], [address] Urea nitrogen [Mass/Vol] 20 mg/dL High 4-19 [facility] Comment on above: Performed By: #### L 501.9520, L500.4100, L100.0100, L500.4050, L506.1001 #### [facility] [address] [place], [address] Eosinophil percentageOrdered By: Nohemy Pennington on 07-13-2024 Eosinophils/100 WBC (Bld) 4.3 % 0-5 [facility] Erythrocyte distribution wid th (RBC) [Ratio]Ordered By: Nohemy Pennington on 07-13-2024 Erythrocyte distribution width (RBC) [Entitic vol] 47.8 fL High 35.1-43.9 [facility] Erythrocyte distribution wid th ratioOrdered By: Nohemy Pennington on 07-13-2024 Erythrocyte distribution width (RBC) [Ratio] 14.8 % High 11.6-14.6 [facility] Erythrocyte distribution wid th standard deviationOrdered By: Nohemy Pennington on 07-13-2024 Erythrocyte distribution width (RBC) [Ratio] 47.8 fl High 35.1-43.9 [facility] GFR/1.73 sq M.predicted jade g non-blacks MDRD (S/P/Bld) [Vol rate/Area]Ordered By: Nohemy Pennington on 07-13-2024 Estimated GFR (MDRD) Non-Af Amer 38 Low >60 [facility] Comment on above: mL/min/1.73m2 CKD-EP I Creatinine Equation (2020) Glomerular filtration rate ( GFR) estimation/1.73 sq m using serum, plasma, or whole bOrdered By: Nohemy Pennington on 07-13-2024 GFR/1.73 sq M.predicted among non-blacks MDRD (S/P/Bld) [Vol rate/Area] 38 mL/min/{1.73_m2} Low >60 [facility] Comment on above: mL/min/1.73m2 CKD-EP I Creatinine Equation (2020) Hematocrit Auto (Bld) [Volum e fraction]Ordered By: Nohemy Pennington on 07-13-2024 Hematocrit (Bld) [Volume fraction] 39.6 % Low 40-54 [facility] Hemoglobin measurementOrdere d By: Nohemy Pennington on 07-13-2024 Hemoglobin (Bld) [Mass/Vol] 12.6 g/dL Low 13.0-16.5 [facility] Immature granulocytes/100 WB C Auto (Bld)Ordered By: Nohemy Pennington on 07-13-2024 Immature granulocytes/100 WBC (Bld) 0.400 % 0.0-0.9 [facility] Comment on above: IG% - Immature Granu locytes (promyelocytes, myelocytes and metamyelocytes) > 1% indicates that a LEFT SHIFT is Present. LDL calc ser/plasOrdered By: Nohemy Pennington on 07-13-2024 Cholesterol in LDL [Mass/Vol] 121 mg/dL [facility] Comment on above: Asetofunug=654-178 m g/dL & Higher Gmtc=632 mg/dL or greater LDL Cholesterol, Calculated 121 mg/dL [facility] Comment on above: Grfnfkchip=382-780 m g/dL & Higher Nspq=872 mg/dL or greater Laboratory - Chemistry and C hemistry - challengeOrdered By: Nohemy Pennington on 07-13-2024 AST [Catalytic activity/Vol] 18 U/L <38 [facility] Lipid Profileon 07-13-2024 CHOL:HDL 3.[address] [facility] Comment on above: Performed By: #### L 501.9520, L500.4100, L100.0100, L500.4050, L506.1001 ####[facility] [address] [place], [address] Cholesterol [Mass/Vol] 191 mg/dL Normal <=200 [facility] Comment on above: Result Comment: Chol esterol level, Desirable <200 mg/dL Borderline high cholesterol 200-239 mg/dL High cholesterol >=240 mg/dL Recommendations of the NCEP Adult Treatment Panel for the following risk-cutoff thresholds for the [place] population. Performed By: #### L 501.9520, L500.4100, L100.0100, L500.4050, L506.1001 ####[facility] [id number] [place], [address] Cholesterol in HDL [Mass/Vol] 50 mg/dL Normal [facility] Comment on above: Result Comment: Lissette onal Cholesterol Education Program (NCEP) guidelines: <40 mg/dL: Low HDL-cholesterol (major risk factor for CHD) >= 60 mg/dL: High HDL-cholesterol (negative risk factor for CHD) HDL-cholesterol is affected by a number of factors, e.g. smoking, exercise, hormones, sex and age. Performed By: #### L 501.9520, L500.4100, L100.0100, L500.4050, L506.1001 ####[facility] [address] [place], [address] Cholesterol in LDL [Mass/Vol] 121 mg/dL Normal [facility] Comment on above: Result Comment: Bord wtlyxf=456-745 mg/dL Higher Iund=096 mg/dL or greater Performed By: #### L 501.9520, L500.4100, L100.0100, L500.4050, L506.1001 ####[facility] [address] [place], [address] Cholesterol in VLDL [Mass/Vol] 20 mg/dL Normal 5-40 [facility] Comment on above: Performed By: #### L 501.9520, L500.4100, L100.0100, L500.4050, L506.1001 ####[facility] [address] [place], [address] Triglyceride [Mass/Vol] 100 mg/dL Normal [facility] Comment on above: Result Comment: The drugs N-Acetylcysteine and Metamizole may falsely depress this assay. Normal range: <150 mg/dL Borderline High: 150-199 mg/dL High: 200-499 mg/dL Very High: >500 mg/dL Performed By: #### L 501.9520, L500.4100, L100.0100, L500.4050, L506.1001 ####[facility] [address] [place], [address] Lymphocytes Auto (Unsp spec) [#/Vol]Ordered By: Nohemy Pennington on 07-13-2024 Lymphocytes (Bld) [#/Vol] 1.26 10*3/uL 0.83-4.51 [facility] Lymphocytes/100 WBC Auto (Un sp spec)Ordered By: Nohemy Pennington on 07-13-2024 Lymphocytes/100 WBC (Bld) 16.4 % Low 19-41 [facility] MCV (mean corpuscular volume ) determinationOrdered By: Nohemy Pennington on 07-13-2024 MCV (RBC) [Entitic vol] 88.4 fL 80-94 [facility] Mean corpuscular hemoglobin (MCH) determinationOrdered By: Nohemy Pennington on 07-13-2024 MCH (RBC) [Entitic mass] 28.1 pg 27.0-32.0 [facility] Mean corpuscular hemoglobin concentration (MCHC) determinationOrdered By: Nohemy Pennington on 07-13-2024 MCHC (RBC) [Mass/Vol] 31.8 g/dL Low 32-36 [facility] Mean platelet volume determi nationOrdered By: Nohemy Pennington on 07-13-2024 Platelet mean volume (Bld) [Entitic vol] 9.9 fL 6.2-12.0 [facility] Monocyte percentageOrdered B y: Nohemy Pennington on 07-13-2024 Monocytes/100 WBC (Bld) 8.5 % 0-10 [facility] Neutrophil percentageOrdered By: Nohemy Pennington on 07-13-2024 Neutrophils/100 WBC (Bld) 69.6 % 47-70 [facility] Nucleated red blood cell per centageOrdered By: Nohemy Pennington on 07-13-2024 Nucleated RBC/100 WBC (Bld) [Ratio] 0 % 0-5 [facility] Office Visit Reporton 2024 Office Visit Report [facility] [address] [place] [address] OFFICE VISIT Date of Service: 07/13/24 MR#: [id number] Acct: [id number] Patient: AGATHA HEATH Rep #: [id number] : 1940 Provider: JAMAL NURSE Age/Sex: 84/M Location[place] [facility] Status: Signed Intake Vital Signs 07/12/24 14:33 [...] Visit Reasons: BP CHECK Chief Complaint: bp [employer] Required: No Is patient in pain?: No [...] past year?: No 07/13/24 1311 Date Nohemy Pennington MD Cosigner Signature: Date (if applicable) CC: BIM NURSE Normal [facility] Platelet countOrdered By: Simone Pennington on 07-13-2024 Platelets (Bld) [#/Vol] 320 10*3/uL 150-450 [facility] Potassium (Unsp spec) [Mass/ Vol]Ordered By: Nohemy Pennington on 07-13-2024 Potassium [Moles/Vol] 4.9 mmol/L 3.3-5.1 [facility] Potassium measurement (mass/ volume)Ordered By: Nohemy Pennington on 07-13-2024 Potassium (Unsp spec) [Mass/Vol] 4.9 mmol/L 3.3-5.1 [facility] RBC Auto (Bld) [#/Vol]Ordere d By: Nohemy Pennington on 07-13-2024 RBC (Bld) [#/Vol] 4.48 10*6/uL Low 4.6-6.2 [facility] Screening total cholesterol/ high density lipoprotein (HDL) cholesterol ratioOrdered By: Nohemy Pennington on 07-13-2024 Cholesterol.total/Choles terol in HDL [Mass ratio] 3.84 {ratio} [facility] Serum creatinine measurement (mass/volume)Ordered By: Nohemy Pennington on 07-13-2024 Creatinine [Mass/Vol] 1.74 mg/dL High 0.70-1.20 [facility] Serum globulin measurementOr dered By: Nohemy Pennington on 07-13-2024 Globulin (S) [Mass/Vol] 3.0 g/dL 2.2-4.2 [facility] Serum glucose measurement (m ass/volume)Ordered By: Nohemy Pennington on 07-13-2024 Glucose [Mass/Vol] 106 mg/dL High 70-99 [facility] Serum or plasma alanine regalado otransferase (ALT) measurementOrdered By: Nohemy Pennington on 07-13-2024 ALT [Catalytic activity/Vol] 16 U/L <47 [facility] Serum or plasma albumin anant urement (mass/volume)Ordered By: Nohemy Pennington on 07-13-2024 Albumin [Mass/Vol] 3.9 g/dL 3.4-4.8 [facility] Serum or plasma albumin/glob ulin mass ratioOrdered By: Nohemy Pennington on 07-13-2024 Albumin/Globulin [Mass ratio] 1.3 {ratio} 0.9-2.4 [facility] Serum or plasma alkaline ambreen sphatase measurementOrdered By: Nohemy Pennington on 07-13-2024 ALP [Catalytic activity/Vol] 112 U/L 40-129 [facility] Serum or plasma calcium anant urement (mass/volume)Ordered By: Nohemy Pennington on 07-13-2024 Calcium [Mass/Vol] 9.7 mg/dL 7.6-11.0 [facility] Serum or plasma cholesterol in HDL measurement (mass/volume)Ordered By: Nohemy Pennington on 07-13-2024 Cholesterol in HDL [Mass/Vol] 50 mg/dL >40 [facility] Comment on above: National Cholesterol Education Program (NCEP) guidelines:<40 mg/dL: Low HDL-cholesterol (major risk factor for CHD)>= 60 mg/dL: High HDL-cholesterol (negative risk factor for CHD)HDL-cholesterol is affected by a number of factors, e.g. smoking, exercise, hormones, sex and age. Serum or plasma cholesterol measurement (mass/volume)Ordered By: Nohemy Pennington on 07-13-2024 Cholesterol [Mass/Vol] 191 mg/dL <201 [facility] Comment on above: Cholesterol level, D esirable <200 mg/dLBorderline high cholesterol 200-239 mg/dLHigh cholesterol >=240 mg/dLRecommendations of the NCEP Adult Treatment Panel for the following risk-cutoff thresholds for the [place] [place] population. Serum or plasma urea nitroge n measurement (mass/volume)Ordered By: Nohemy Pennington on 07-13-2024 Urea nitrogen [Mass/Vol] 20 mg/dL High 4-19 [facility] Sodium levelOrdered By: Stephanie Pennington on 07-13-2024 Sodium [Moles/Vol] 137 mmol/L 133-145 [facility] TSH DL <= 0.005 mIU/L QnOrde red By: Nohemy Pennington on 07-13-2024 Thyroid Stimulating Hormone (TSH) 6.300 uIU/mL High 0.300-4.200 [facility] TSH Qn 6.300 uIU/mL High 0.300-4.200 [facility] Thyroid Stim Hormone (TSH)on 07-13-2024 TSH 6.300 uIU/mL High 0.300-4.200 [facility] Comment on above: Performed By: #### L 501.9520, L500.4100, L100.0100, L500.4050, L506.1001 ####[facility] [id number] [place], [place], [id number] Total proteinOrdered By: Willie Pennington on 07-13-2024 Protein [Mass/Vol] 6.9 g/dL 5.9-8.4 [facility] Triglycerides measurementOrd ered By: Nohemy Pennington on 07-13-2024 Triglyceride [Mass/Vol] 100 mg/dL <199 [facility] Comment on above: The drugs N-Acetylcy steine and Metamizole may falsely depress this assay. Normal range: <150 mg/dLBorderline High: 150-199 mg/dLHigh: 200-499 mg/dLVery High: >500 mg/dL Vitamin D, 25-hydroxyOrdered By: Nohemy Pennington on 07-13-2024 Vitamin D 25-Hydroxy 53.5 ng/mL 30-100 [facility] Comment on above: Vitamin D StatusDefi ciency: <20 ng/mL (50nmol/L)Insufficiency: 20-30 ng/mL (50-75 nmol/L)Sufficiency: 30-100 ng/mL (75-250 nmol/L)Toxicity: >100 ng/mL (>250 nmol/L) Vitamin D,25 Hydroxyon 07-13 Vitamin D 25-OH 53.5 ng/mL Normal 30-100 [facility] Comment on above: Result Comment: Eufemia min D Status Deficiency: <20 ng/mL (50nmol/L) Insufficiency: 20-30 ng/mL (50-75 nmol/L) Sufficiency: 30-100 ng/mL (75-250 nmol/L) Toxicity: >100 ng/mL (>250 nmol/L) Performed By: #### L 501.9520, L500.4100, L100.0100, L500.4050, L506.1001 ####[facility] [id number] [place], [place], [id number] White blood cell (WBC) count Ordered By: Nohemy Pennington on 07-13-2024 WBC (Bld) [#/Vol] 7.7 10*3/uL 4.4-11.0 [facility] Internal Medicine Office Vis itodeanna 07-11-2024 Internal Medicine Office Visit [facility] [address] [place] [address] [place] [address] OFFICE VISIT Date of Service: 07/12/24 MR#: [id number] Acct: [id number] Name: AGATHA HEATH Rep #: [id number] : 1940 Provider: Dr. 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 [facility] 05-04-2024 [facility] AGATHA HEATH ([id number]) 1940 M Date Time Provider Department 05/04/24 [...] Date Reviewed: 05/25/2018 Reviewed by: Kamilla Mars ([facility])MARY ANNE - Fully Assessed Reason for Visit: [...] Status:Closed by PAULA CASTELLANO on 05/06/24 Normal [facility] Vital Signs Date Time Vital Sign Value Performing Clinician Linoi carleen 11-10-2024 10:49-0400 Diastolic blood pressure 86 mm[Hg] Dr. Nohemy Pennington MD Work Phone: [facility] 11-10-2024 10:49-0400 Systolic blood pressure 176 mm[Hg] Dr. Nohemy Pennington MD Work Phone: [facility] 11-10-2024 10:05-0400 Body height 170.[address] Nohemy Pennington MD Work Phone: [facility] 11-10-2024 10:05-0400 Body mass index (BMI) [Ratio] 28.1 kg/m2 Dr. Nohemy Pennington MD Work Phone: [facility] 11-10-2024 10:05-0400 Body temperature 96.9 [degF] Dr. Nohemy Pennington MD Work Phone: [facility] 11-10-2024 10:05-0400 Body weight 81.[address] Nohemy Pennington MD Work Phone: [facility] 11-10-2024 10:05-0400 Heart rate 66 /min Dr. Nohemy Pennington MD Work Phone: [facility] 11-10-2024 10:05-0400 Respiratory rate 16 /min Dr. Nohemy Pennington MD Work Phone: [facility] 11-10-2024 10:05-0400 SaO2% (BldA) [Mass fraction] 98 % Dr. Nohemy Pennington MD Work Phone: [facility] 10-05-2024 11:37-0400 Body height 170.[address] Nohemy Pennington MD Work Phone: [facility] 10-05-2024 11:37-0400 Body mass index (BMI) [Ratio] 29 kg/m2 Dr. Nohemy Pennington MD Work Phone: [facility] 10-05-2024 11:37-0400 Body temperature 98.6 [degF] Dr. Nohemy Pennington MD Work Phone: [facility] 10-05-2024 11:37-0400 Body weight 83.[address] Nohemy Pennington MD Work Phone: [facility] 10-05-2024 11:37-0400 Diastolic blood pressure 80 mm[Hg] Dr. Nohemy Pennington MD Work Phone: [facility] 10-05-2024 11:37-0400 Heart rate 70 /min Dr. Nohemy Pennington MD Work Phone: [facility] 10-05-2024 11:37-0400 Respiratory rate 16 /min Dr. Nohemy Pennington MD Work Phone: [facility] 10-05-2024 11:37-0400 SaO2% (BldA) [Mass fraction] 97 % Dr. Nohemy Pennington MD Work Phone: [facility] 10-05-2024 11:37-0400 Systolic blood pressure 170 mm[Hg] Dr. Nohemy Pennington MD Work Phone: [facility] 09-27-2024 08:47-0400 Body height 170.[address] Nohemy Pennington MD Work Phone: [facility] 09-27-2024 08:47-0400 Body mass index (BMI) [Ratio] 28.1 kg/m2 Dr. Nohemy Pennington MD Work Phone: [facility] 09-27-2024 08:47-0400 Body temperature 97.6 [degF] Dr. Nohemy Pennington MD Work Phone: [facility] 09-27-2024 08:47-0400 Body weight 81.[address] Nohemy Pennington MD Work Phone: [facility] 09-27-2024 08:47-0400 Diastolic blood pressure 60 mm[Hg] Dr. Nohemy Pennington MD Work Phone: [facility] 09-27-2024 08:47-0400 Heart rate 70 /min Dr. Nohemy Pennington MD Work Phone: [facility] 09-27-2024 08:47-0400 Respiratory rate 16 /min Dr. Nohemy Pennington MD Work Phone: [facility] 09-27-2024 08:47-0400 SaO2% (BldA) [Mass fraction] 99 % Dr. Nohemy Pennington MD Work Phone: [facility] 09-27-2024 08:47-0400 Systolic blood pressure 140 mm[Hg] Dr. Nohemy Pennington MD Work Phone: [facility] 08-11-2024 11:22-0400 Diastolic blood pressure 80 mm[Hg] Dr. Nohemy Pennington MD Work Phone: [facility] 08-11-2024 11:22-0400 Systolic blood pressure 178 mm[Hg] Dr. Nohemy Pennington MD Work Phone: [facility] 08-11-2024 10:02-0400 Body height 170.[address] Nohemy Pennington MD Work Phone: [facility] 08-11-2024 10:02-0400 Body mass index (BMI) [Ratio] 28 kg/m2 Dr. Nohemy Pennington MD Work Phone: [facility] 08-11-2024 10:02-0400 Body temperature 97.1 [degF] Dr. Nohemy Pennington MD Work Phone: [facility] 08-11-2024 10:02-0400 Body weight 81.[address] Nohemy Pennington MD Work Phone: [facility] 08-11-2024 10:02-0400 Heart rate 58 /min Dr. Nohemy Pennington MD Work Phone: [facility] 08-11-2024 10:02-0400 Respiratory rate 16 /min Dr. Nohemy Pennington MD Work Phone: [facility] 08-11-2024 10:02-0400 SaO2% (BldA) [Mass fraction] 99 % Dr. Nohemy Pennington MD Work Phone: [facility] 07-13-2024 08:09-0400 Diastolic blood pressure 82 mm[Hg] Dr. Nohemy Pennington MD Work Phone: [facility] 07-13-2024 08:09-0400 Systolic blood pressure 178 mm[Hg] Dr. Nohemy Pennington MD Work Phone: [facility] 07-12-2024 16:51-0400 Diastolic blood pressure 86 mm[Hg] Dr. Nohemy Pennington MD Work Phone: [facility] 07-12-2024 16:51-0400 Systolic blood pressure 152 mm[Hg] Dr. Nohemy Pennington MD Work Phone: [facility] 07-12-2024 14:33-0400 Body height 170.[address] Nohemy Pennington MD Work Phone: [facility] 07-12-2024 14:33-0400 Body mass index (BMI) [Ratio] 28.3 kg/m2 Dr. Nohemy Pennington MD Work Phone: [facility] 07-12-2024 14:33-0400 Body temperature 95.2 [degF] Dr. Nohemy Pennington MD Work Phone: [facility] 07-12-2024 14:33-0400 Body weight 82.[address] Nohemy Pennington MD Work Phone: [facility] 07-12-2024 14:33-0400 Heart rate 64 /min Dr. Nohemy Pennington MD Work Phone: [facility] 07-12-2024 14:33-0400 Respiratory rate 16 /min Dr. Nohemy Pennington MD Work Phone: [facility] 07-12-2024 14:33-0400 SaO2% (BldA) [Mass fraction] 96 % Dr. Nohemy Pennington MD Work Phone: [facility] Encounters Encounter Date Encounter Type Care Provider Facility Start: 11-14-2024 End: 11-14-[address] Nohemy Pennington MD Work Phone: [facility] [place] Start: 11-14-2024 End: 11-14-2024 Patient encounter procedure Verónica AGUILAR -[facility] [place] Work Phone: Start: 11-14-2024 End: 11-14-2024 ambulatory Nohemy Quinterolay Facility:[facility] Start: 11-10-2024 End: 11-10-[address] Nohemy Pennington MD Work Phone: -Laboratory Start: 11-10-2024 End: 11-10-[address] Nohemy Pennington MD -Laboratory Work Phone: Start: 11-10-2024 End: 11-10-[address] Nohemy Pennington MD -[facility] Work Phone: Start: 11-10-2024 End: 11-10-[address] Nohemy Pennington MD Work Phone: -[facility] Start: 11-10-2024 End: 11-10-2024 ambulatory Nohemy Pennington Facility:[facility] Start: 10-26-2024 End: 10-26-2024 ambulatory [facility] Start: 10-05-2024 End: 10-05-[address] Nohemy Pennington MD -[facility] Work Phone: Start: 10-05-2024 End: 10-05-[address] Nohemy Pennington MD Work Phone: -[facility] Start: 09-27-2024 End: 09-27-2024 Patient encounter procedure Roberto Carlos AGUILAR [facility] Work Phone: Start: 09-27-2024 End: 09-27-[address] Nohemy Pennington MD Work Phone: [facility] Work Phone: Start: 08-11-2024 End: 08-11-[address] Nohemy Pennington MD -[facility] Work Phone: Start: 08-11-2024 End: 08-11-[address] Nohemy Pennington MD Work Phone: [facility] Work Phone: Start: 08-11-2024 End: 08-11-2024 ambulatory Nohemy Pennington Facility:[facility] Start: 07-26-2024 ambulatory Nohemy Quinterolay Facility :[facility] Start: 07-13-2024 End: 07-13-2024 Patient encounter procedure BIM NURSE -[facility] Work Phone: Start: 07-13-2024 End: 07-13-[address] Nohemy Pennington MD Work Phone: [facility] Work Phone: Start: 07-12-2024 End: 07-13-2024 ambulatory Nohemy Pennington Facility:[facility] Start: 07-12-2024 End: 07-12-[address] Nohemy Pennington MD -[facility] Work Phone: Start: 05-04-2024 End: 05-06-2024 Telephone encounter Ayaz Ferraro MD Work Phone: [facility] [place] Comment on above: New Patient Procedures Date Procedure Procedure Detail Performing Clinician Start: 11-14-[address] Nohemy Pennington MD Work Phone: Comment on above: Test Ordered: [id number] BP180 and BP230 [id number] IgG <2 RU/mL BN Reference Range: Neg: <50SB614 IgG <2 RU/mL BN Reference Range: Neg: <20Positive test results might suggest a potential diagnosisof Bullous Pemphigoid. Nevertheless, the definitiveclinical assessment should rely on a comprehensiveevaluation that combines clinical characteristics with thefindings from additional supportive tests. Thesesupplementary tests include histopathology using standardmicroscopy, and indirect immunofluorescence on human salt-split skin and monkey esophagus substrates.Performed at: [address] [id number] Director: Cooper Tong MD, Phone: [phone] at: [address] [id number] Director: Milo Eden PhD, Phone: [phone] Start: 07-13-2024 Vitamin D, 25-hydrox y measurement Dr. Nohemy Pennington MD Work Phone: Comment on above: Vitamin D StatusDefi ciency: <20 ng/mL (50nmol/L)Insufficiency: 20-30 ng/mL (50-75 nmol/L)Sufficiency: 30-100 ng/mL (75-250 nmol/L)Toxicity: >100 ng/mL (>250 nmol/L) Plan of Treatment Date Care Activity Detail Author Start: 04-06-2024 Advance Directive Discussion Advance Directive Discussion [facility] Start: 12-06-2023 Covid-19 Vaccine ( season) Covid-19 Vaccine ( season) [facility] Start: 12-06-2023 Influenza vaccination Influenza Vacc ine (#1) [facility] Start: 05-20-2020 Diabetes Screening Diabetes Screenin g [facility] Start: 2013 RSV Vaccine (1 - 1-d ose 75+ series) RSV Vaccine (1 - 1-dose 75+ series) [facility] Start: 03-05-2005 Urine microalbumin profile DTaP,Tdap,Td Vaccine (1 - Tdap) [facility] Start: 01-18-2005 Pneumococcal Vaccine : 50+ (2 of 2 - PCV) Pneumococcal Vaccine: 50+ (2 of 2 - PCV) [facility] Start: 1988 Shingrix Vaccine (1 of 2) Shingrix V accine (1 of 2) [facility] Start: 1956 Anxiety Screening Anxiety Screening [facility] Start: 1956 Depression Screening Depression Scre ening [facility] Immunizations Immunization Date Immunization Notes Care Provider Fa cility 03-14-2024 Covid (Spikevax) Dr. Nohemy Pennington MD Work Phone: [facility] 03-14-2024 influenza, high dose seasonal, preservative-free Dr. Nohemy Pennington MD Work Phone: [facility] 04-03-[address] Nohemy Pennington MD Work Phone: [facility] 01-18-2023 Covid (Spikevax) Dr. Nohemy Pennington MD Work Phone: [facility] 01-18-[address] Nohemy Pennington MD Work Phone: [facility] 01-02-2023 Influenza High-Dose Quadrivalent Dr. Nohemy Pennington MD Work Phone: [facility] 01-28-2022 Covid Moderna Bivale nt Booster Dr. Nohemy Pennington MD Work Phone: [facility] 01-28-2022 Influenza High-Dose Quadrivalent Dr. Nohemy Pennington MD Work Phone: [facility] 07-23-2021 Covid (Moderna) Dr. Nohemy rainey MD Work Phone: [facility] 01-31-2021 Covid (Moderna) Dr. Nohemy rainey MD Work Phone: [facility] 01-14-2021 Influenza High-Dose Quadrivalent Dr. Nohemy Pennington MD Work Phone: [facility] 05-21-2020 Covid (Moderna) Dr. Nohemy rainey MD Work Phone: [facility] 04-24-2020 Covid (Moderna) Dr. Nohemy rainey MD Work Phone: [facility] 01-04-2020 influenza, high dose seasonal, preservative-free Ayaz Ferraro MD Work Phone: [facility] 01-04-2020 influenza, injectabl e, quadrivalent, preservative free Dr. Noheym Pennington MD Work Phone: [facility] 01-04-2020 influenza virus vacc ine, unspecified formulation Ayaz Ferraro MD Work Phone: [facility] 06-19-2019 tetanus toxoid, redu terrance diphtheria toxoid, and acellular pertussis vaccine, adsorbed Dr. Nohemy Pennington MD Work Phone: [facility] 01-06-2019 influenza, high dose seasonal, preservative-free Ayaz Ferraro MD Work Phone: [facility] 01-14-2018 influenza, high dose seasonal, preservative-free Dr. Nohemy Pennington MD Work Phone: [facility] 01-28-2017 influenza, high dose seasonal, preservative-free Ayaz Ferraro MD Work Phone: [facility] 01-11-2010 influenza, injectabl e, quadrivalent, preservative free Dr. Nohemy Pennington MD Work Phone: [facility] 03-20-2009 novel influenza-H1N1 -09, preservative-free, injectable Dr. Nohemy Pennington MD Work Phone: [facility] 01-01-2009 influenza, injectabl e, quadrivalent, preservative free Dr. Nohemy Pennington MD Work Phone: [facility] 03-04-2005 tetanus and diphther ia toxoids, adsorbed, preservative free, for adult use (2 Lf of tetanus toxoid and 2 Lf of diphtheria toxoid) Ayaz Ferraro MD Work Phone: [facility] 01-19-2004 pneumococcal polysaccharide vaccine, 23 valent Ayaz Ferraro MD Work Phone: [facility] Payers Date Payer Category Payer Self-pay 2024 Self-pay [id number] 2018 Private Health Insurance [facility] [employer] PPO [id number] 2018-Present [phone] [address] [place] [address] PPO [id number] 2003 Medicare MEDICARE MEDICAR E A AND B [id number] 2003-Present [phone] [address] [address] [place] [address] Medicare [id number] 2003 Medicare [id number] Unknown [id number] Unknown [id number] Unknown [id number] Unknown [id number] Unknown [id number] Unknown [id number] Unknown [id number] Unknown [id number] Unknown [id number] Unknown [id number] Unknown [id number] Unknown [id number] Unknown [id number] [id number] Social History Date Type Detail Facility Start: 05-25-2018 [facility] Start: 05-25-2018 Tobacco use and exposure Smokeless tobacco non-user [facility] Start: 11-20-2021 Alcoholic beverage intake Current non-drinker of alcohol (finding) [facility] Start: 05-25-2018 End: 03-13-2020 History of Social function [facility] Start: 05-25-2018 End: 03-13-2020 Tobacco use panel [facility] National Score (1-10 0), lower number is lower risk Not on file [facility] Start: 1940 Sex assigned at Not on file [facility] Start: 07-12-2024 Tobacco smoking stat [facility] Ex-smoker (finding) [facility] Start: 07-15-2024 Sex Male (finding) [facility] Start: 1940 Sex Assigned At Male [facility] Clinical Notes 05-04-2024 to 08-11-2024 Note Date & Type Note Facility 08-11-2024 Evaluation note Diagnosis Onset Date Resolution Essential hypertension acute Ma y 2024 9:56am [...] Essential hypertension acute Au sejal 2024 9:57am Rash and nonspecific skin eruption noneactive November 10, 2024 9:57am Grief noneactive November 10 9:57am Heart murmur noneactive November 10, 2024 9:57am Chronic kidney disease noneactive [facility] 2024 9:57am Skin lesion noneactive November 10, 9:57am Acute DVT (deep venous thrombosis) noneactive November 10, 2024 9:57am [facility] Work Phone: 1(418) 256-861904-09-2025 Evaluation note* Diagnosis Onset Date Resolution Status Admit Date Essential hypertension acute Ap ril 2024 7:53am [...] nonspecific skin eruption noneactive October 05, 2024 1 1:23am Heart murmur noneactive October 05 11:23am Chronic kidney disease noneactive Ju ly 2024 11:23am Skin lesion noneactive October 05 11:23am Acute DVT (deep venous thrombosis) noneactive October 05, 2024 1 1:23am Essential hypertension acute Au sejal 2024 9:57am Heart murmur noneactive November 10, 2024 9:57am Chronic kidney disease noneactive [facility] 2024 9:57am Acute DVT (deep venous thrombosis) noneactive November 10, 2024 9:57am [facility] Work Phone: 1(998) 547-264104-08-2025 Evaluation note* Diagnosis Onset Date Resolution Status Admit Date Essential hypertension acute Ap ril 2024 2:18pm Establishing care with new doctor, encounter for noneactive July 12, 2024 2:18pm Grief noneactive July 12 2:18pm Heart murmur noneactive July 12, 2 025 2:18pm Essential hypertension acute Ap ril 2024 7:53am [facility] Work Phone: 1(815) 433-536304-08-2025 Evaluation note* Diagnosis Onset Date Resolution Status [...] 9:56am Elevated TSH noneactive August 11 9:56am [facility] Work Phone: 1(623) 486-575204-08-2025 Evaluation note* Diagnosis Onset Date Resolution Status [...] thrombosis) noneactive October 05, 2024 1 1:23am [facility] Work Phone: 1(978) 157-432301-31-2025 Telephone encounter Note* Telephone Encounter - Paula Castellano MA - 05/06/2024 2:08 PM EST Katherine reached out and patient has found another physician. He was counsin. Paula Castellano MA [facility]01-31-2025 Miscellaneous Notes* Telephone Encounter - Paula [...] a relative. * Telephone Encounter - Paula Csatellano MA - 05/04/2024 2:[address] [...] in chart is accurate. [facility] Telephone encounter Note * Telephone Encounter - Paula Castellano MA - 05/04/2024 4:41 PM EST Did reach out to Katherine via my chart. Paula Castellano MA [facility]01-29-2025 Telephone encounter Note* Telephone Encounter - Ayaz Ferraro MD - 05/04/2024 3:58 PM EST Dianna find out from Jade Stanley: how she is related. She has him listed in her chart but just as a relative. [facility] Work Phone: 1(450) 434-823201-29-2025 Telephone encounter Note* Telephone Encounter - Paula Castellano MA - 05/04/2024 2:[address] Ferraro Only excepts new patient's - immediate close family members only. If he sees / Child/children Grandparents Who has patient been seeing since 2019? Paula Castellano MA' [facility]01-29-2025 Telephone encounter Note* Telephone Encounter - [...] number for patient in chart is accurate. 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 EST CARE - PPW SENT July 12, [...] (deep venous thrombosis) Augus t 2024 9:57am Chief Complaint Admit Date 4 WK FU August 11, 2024 9:56am BEE STING/RASH/HIVES ON BACK September 27, 2024 8:43am BLOOD CLOT IN LEG October 05, 2024 11:23 am 3 M FU November 10, 2024 9:5 7am NO EORDERS YET/JUST CAME FROM OFFICE Nov us2024 11:08am SKIN November 14, 2024 10 :53am Reason for Visit Admit Date Essential hypertension August 11, 2024 9:5 6am [...] 11:23am Essential hypertension November 10, 2024 9:57am Rash and nonspecific skin eruption Augus t 2024 9:57am Grief November 10, 2024 9:5 7am Heart murmur November 10, 2024 9:5 7am Chronic kidney disease November 10, 2024 9:57am Skin lesion November 10, 2024 9:5 7am Acute DVT (deep venous thrombosis) Augus t 2024 9:57am Additional Source Comments Source Comments (unrecognize d section and content) In the event this informatio n is protected by the Federal Confidentiality of Alcohol and Drug Abuse Patient Records regulations: The Federal rules restrict any use of the information to criminally investigate or prosecute any alcohol or drug abuse patient.[facility] Reason for Visit (unrecogniz ed section and content) Reason Comments New Patient (unrecognized sect ion and content) No Status Records FoundNo Status Records FoundNo Status Records Found INFORMATION SOURCE (unrecogn ized section and content) DATE CREATED AUTHOR 05/08/2024 [facility] DATE CREATED AUTHOR AUTHOR'S ORGANIZ ATION 10/27/2024 [facility] DATE CREATED AUTHOR AUTHOR'S ORGANIZ ATION 12/17/2024 [facility] Care Teams (unrecognized sec tion and content) [...] 2024 End: September 27, 2024 Roberto Carlos AGUILAR, PA Attending Provider Active Start: September 27, [...] 2024 End: August 11, 2024 Dr. Nohemy Pennnigton MD Attending Provider Active Start: August 11, [...] 2024 End: September 27, 2024 Roberto Carlos AGUILAR, PA Attending Provider Active Start: September 27, [...] November 10, 2024 End: November 10, 2024 Team Status: Inactive Member Role/Relationship Status [...] November 10, 2024 End: November 10, 2024 Team Status: Inactive Member Role/Relationship Status Dates Dr. Nohemy Pennington MD Primary Care Provider Active Start: November 10, 2024 End: November 10, 2024 Dr. Nohemy Pennington MD Attending Provider Active Start: November 10, 2024 End: November 10, 2024 Dr. Nohemy Pennington MD Referring Provider Active Start: November 10, 2024 End: November 10, 2024 Team Status: Active Member Role/Relationship Status Dates Dr. Nohemy Pennington MD Primary Care Provider Active Start: November 14, 2024 Verónica Dalton NP, BUSINESS SERVICES DIRECTOR-C Attending Provider Active Sta rt: November 14, 2024 Verónica Dalton NP, BUSINESS SERVICES DIRECTOR-C Referring Provider Active Sta rt: November 14, 2024 Team Status: Inactive Member Role/Relationship Status Dates Dr. Nohemy Pennington MD Primary Care Provider Active Start: November 14, 2024 End: November 14, 2024 Verónica Dalton BUSINESS SERVICES DIRECTOR, BUSINESS SERVICES DIRECTOR-C Attending Provider Active Sta rt: November 14, 2024 End: November 14, 2024 Verónica Dalton BUSINESS SERVICES DIRECTOR, BUSINESS SERVICES DIRECTOR-C Referring Provider Active Sta rt: November 14, 2024 End: November 14, 2024 Goals (unrecognized section and content) Goals [...] BE BASED ON THE PRIMARY CLINICAL RECORDS. [facility] HospitalDeviceAuthority [facility]. provides no warranty or guarantee of the accuracy or completeness of information in this document.
[2025-02-14 13:14] LABS: Hematocrit 42.7 % (40-54); Hemoglobin 13.9 g/dL (13.0-16.5); Immature Granulocytes Count 0.020 X10^3/uL (0.0-0.0); Mean Corp Hgb Conc 32.6 g/dL (32-36); Mean Corpuscular Volume 88.2 fL (80-94); Mean Platelet Vol. 10.2 fl (6.2-12.0); NRBC Flagged by Analyzer 0 % (0-5); Platelet Count 256 K/mm3 (150-450); RBC Distribution Width CV 14.1 % (11.6-14.6); RBC Distribution Width SD 45.3 fl (35.1-43.9); Red Blood Count 4.84 M/mm3 (4.6-6.2); White Blood Count 7.9 K/mm3 (4.4-11.0)
[2025-02-14 14:42] LABS: AST(SGOT) 20 U/L (<=37); Alanine Aminotransfer ALT/SGPT 13 U/L (<=46); Albumin, Serum 4.0 g/dL (3.4-4.8); Alkaline Phosphatase 87 U/L (40-129); Anion Gap 11 (5-15); BUN 29 mg/dL (4-19); BUN/Creat Ratio 15.4 RATIO (10-20); Calcium,Total 9.5 mg/dL (7.6-11.0); Carbon Dioxide 23.1 mmol/L (21.0-32.0); Chloride 104 mmol/L (98-108); Globulin 2.6 g/dL (2.2-4.2); Glucose 98 mg/dL (70-99); Potassium 4.0 mmol/L (3.3-5.1); Vitamin B12 472 pg/mL (180-914)
== END | disposition home or self-care (01) ==
LOC: LAB 12:07
PROVIDERS: PCP Internal Medicine; Referring Provider Internal Medicine; Visit Provider Internal Medicine
DX: I10 Essential (primary) hypertension (principal); R41.89 Other symptoms and signs involving cognitive functions and awareness
CPT/HCPCS: 36415; 80053; 82607; 84443; 85025